=== PATIENT | female | born 1985 | race Caucasian/White ===

== ENCOUNTER 2016-10-04 11:17 | Outpatient (CLI) | payer OTHER ==
[2016-10-04] MEDS ORDERED: RINGERS SOLUTION,LACTATED 1,000 ML IV PRN (11:24)
[2016-10-04] MEDS ORDERED: RINGERS SOLUTION,LACTATED 2,000 ML IV ONE (11:24)
--- NOTE | 2016-10-04 12:00 | L&D Flow Sheet ---
LD Flowsheet Datetime Report Generated by CPN: 10/04/2016 12:00 Datetime: 10/04/2016 11:55 Patient Care IV/Blood Work: IV Started; IV Bolus Started (Hali Camp, RNC) Patient Care Comments: 18 gjelco placed in left forearm open for 2 liter bolus via gravity infusong withou difficulty (Hali Camp, RNC) Datetime: 10/04/2016 11:44 Vital Signs NBP Sys/Carolyn/Mean (mmHg): 120 (QS system process) : 66 (QS system process) : 87 (QS system process) Pulse: 102 (QS system process)
--- NOTE | 2016-10-04 13:18 | Non Stress Test Report ---
Non Stress Test Datetime Report Generated by CPN: 10/04/2016 13:18 DEMOGRAPHIC EGA NST: 37.3 INDICATION Indication for Study: Ordered by Provider MONITORING Monitor Explained: Monitor Explained; Test Explained; Other Time on Monitor: 10/04/2016 11:41 Time off Monitor: 10/04/2016 12:14 NST Duration: 33 NST INTERVENTIONS NST Interventions: PO Hydration; IV Fluids; Reposition Patient Physician Notified NST: K Matamoros CNM BABY A: [id number] BABY A Movement : Present Contraction Frequency : x0 FHR Baseline : 135 Accelerations : 15X15 Decelerations : None Variability : Moderate 6-25bpm NST Review: Meets Criteria for Reactive NST NST Review and Verified By : Coby Dye RNC NST Results: Reactive NST REPORT Report Trigger: Send Report
--- NOTE | 2016-10-04 14:01 | L&D Flow Sheet ---
LD Flowsheet Datetime Report Generated by CPN: 10/04/2016 14:00 Datetime: 10/04/2016 13:15 IV/Blood Work: IV Infusing per Order (Hali Camp, RNC) Patient Care Comments: RN to bedside, resting comfortably with no complaints. (Hali Camp, RNC) Datetime: 10/04/2016 12:45 IV/Blood Work: IV Bolus Given ml @ (Annotations: LR 1000 ml given, second liter hung and infusing via gravity as ordered.) (Hali Camp, RNC) Datetime: 10/04/2016 12:29 Pain Scale: 0 (Trinh Dye, RNC) Pain Presence: None/Denies (Trinh Dye, RNC) Level of Consciousness: Fully Conscious (Trinh Dye, RNC) DTR's/Clonus: DTRs 2+; No Clonus (Trinh Dye, RNC) Headache: Denies (Trinh Dye, RNC) Breath Sounds, Left: Clear and Equal (Trinh Dye, RNC) Breath Sounds, Right: Clear and Equal (Trinh Hardik, RNC) Nausea/Vomiting: Denies (Trinh Dye, RNC) RUQ Epigastric Pain: Denies (Trinh Dye, RNC) Instructional Method: Verbal (Trinh Dye, RNC) Plan of Care: Plan of Care Discussed (Trinh Dye, RNC) Teaching Comments: MARIE, hydration, and repeat MARIE (Trinh Dye, RNC) Datetime: 10/04/2016 12:13 Monitor Mode: External; Palpation (Hali Camp, RNC) Frequency (min): none (Hali Max RNC) Resting Tone (Palpate): Relaxed (Hali Max RNC) Monitor Mode: External US; Auscultation (Hali Max RNC) FHR Baseline Rate : 135 (Hali Max, RNC) FHR Baseline Changes: No Baseline Change (Hali Max, RNC) Variability: Moderate 6-25 bpm (Hali Max, RNC) Accelerations: 15X15 (Hali Max RNC) Decelerations: None (Hali Max RNLizette) IV/Blood Work: IV Infusing per Order (SUNNY Riggins) Patient Care Comments: EFM off per order (Hali Max RNC) Datetime: 10/04/2016 12:10 Provider Reviewed Strip: Yes (SUNNY Riggins) Communication: Provider Orders Received (SUNNY Riggins) Communication Comments: Dr Herrera on unit strip reviewed and noted as reactive. Verbal order received to discontinue monitor. Reviewed plan with pt and mother to complete 2 liters of iv fluid and repeat MARIE 2 hours after completion of infusion. Denies questions or concerns verbalized understanding (SUNNY Riggins)
--- NOTE | 2016-10-04 18:00 | L&D Flow Sheet ---
LD Flowsheet Datetime Report Generated by CPN: 10/04/2016 18:00 Datetime: 10/04/2016 16:33 Instructional Method: Verbal; Written; Patient Instructed; Verbalized Understanding (Hali Camp, [facility]) Labor/Induction: Interventions (Hali Camp, C) Related: Nutrition; Hydration; Activity and Rest (Hali Camp, C) Teaching Comments: Reviewed kick count process, importance of adequate hydration and f/u instructions reveiwed (Hali Camp, C) Datetime: 10/04/2016 16:32 Monitor Mode: Auscultation (Hali Camp, RNC) FHR Baseline Rate : 140 (Hali Camp, RNC) Datetime: 10/04/2016 16:29 NBP Sys/Carolyn/Mean (mmHg): 132 (QS system process) : 63 (QS system process) : 90 (QS system process) Pulse: 93 (QS system process) Datetime: 10/04/2016 16:22 Patient Care Comments: MARIE 8.8cm, call placed to [facility] given verbal report of test result with discharge order received. (Hali Camp, RNC) Datetime: 10/04/2016 16:05 Patient Care Comments: Ambulated with assistance by Keshav Conde ST to U/S for MARIE as scheduled (Hali Max, RNC)
== END 2016-10-04 16:38 | disposition home or self-care (01) ==
LOC: LC 11:17
PROVIDERS: ATTEND Obstetrics & Gynecology
PROC: 4A1HXCZ Monitoring of Products of Conception, Cardiac Rate, External Approach (ICD-10-PCS; principal; 2016-10-04)
DX: O24.419 Gestational diabetes mellitus in pregnancy, unspecified control (principal); Z3A.35 35 weeks gestation of pregnancy
CPT/HCPCS: 59025; 76815

== ENCOUNTER 2016-10-17 10:52 | Outpatient (CLI) | payer OTHER ==
[2016-10-17 11:25] LABS: APPEARANCE,URINE CLOUDY; BILIRUBIN,URINE NEGATIVE (NEGATIVE); GLUCOSE, URINE NEGATIVE (NEGATIVE); KETONES,URINE NEGATIVE (NEGATIVE); LEUKOCYTE ESTERASE,URINE MODERATE (NEGATIVE); NITRITE,URINE NEGATIVE (NEGATIVE); PROTEIN,URINE NEGATIVE (NEGATIVE); URINE SPECIFIC GRAVITY 1.016; UROBILINOGEN,URINE NEGATIVE mg/dL (<2.0)
[2016-10-17 11:30] LABS: AMNISURE (ROM) NEGATIVE (NEGATIVE)
[2016-10-17 11:44] LABS: URINE BARBITURATES SCREEN NEGATIVE; URINE METHADONE SCREEN NEGATIVE; URINE OPIATES LOW NEGATIVE; URINE PHENCYCLIDINE SCREEN NEGATIVE
--- NOTE | 2016-10-17 12:00 | L&D Flow Sheet ---
LD Flowsheet Datetime Report Generated by CPN: 10/17/2016 12:00 Datetime: 10/17/2016 11:34 Vital Signs NBP Sys/Carolyn/Mean (mmHg): 127 (QS system process) : 69 (QS system process) : 91 (QS system process) Pulse: 84 (QS system process) Datetime: 10/17/2016 11:19 Vital Signs NBP Sys/Carolyn/Mean (mmHg): 117 (QS system process) : 66 (QS system process) : 86 (QS system process) Pulse: 86 (QS system process) Datetime: 10/17/2016 11:17 Uterine Activity Monitor Interventions for UA: Higgins Adjusted (Lucy Yi, RN) Resting Tone (Palpate): Relaxed (Lucy Kd, RN) Assessment A Monitor Mode: External US (Lucy Yi, RN) Pain Pain Scale: 2 (Lucy Yi, RN) Pain Presence: Constant (Annotations: back pain) (Lucy Yi, RN) Pain Type: Dull (Lucy Yi, RN) Pain Location: Back (Lucy Yi, RN) Pain Goal: 1 (Lucy Yi, RN) Pain Relief Measures: Comfort Measures (Lucy Yi, RN) Vaginal Exam Vaginal Bleeding: None (Lucy Yi, RN) Maternal Assessment Level of Consciousness: Fully Conscious (Lucy Yi, RN) DTR's/Clonus: DTRs 2+; No Clonus (Lucy Yi, RN) Headache: Denies (Lucy Yi, RN) Breath Sounds, Left: Clear and Equal (Lucy Yi, RN) Breath Sounds, Right: Clear and Equal (Lucy Yi, RN) Nausea/Vomiting: Denies (Lucy Yi, RN) RUQ Epigastric Pain: Denies (Lucy Yi, RN) Patient Care Oxygen Method: Room Air (Lucy Yi, RN) Patient Position/Activity: Right Tilt (Lucy Yi, RN) Provider Reviewed Strip: Yes (Lucy Yi, RN) Teaching Instructional Method: Verbal (TALISHA Jackson Plan of Care: Plan of Care Discussed (Lucy Yi RN) Unit Routine: [place] to Room; Call [place]; Bed; Visiting Policy; Waiting Areas (TALISHA Jackson Labor/Induction: Labor Stages (TALISHA Jackson Related: Common Discomforts of (Lucy Yi RN) Datetime: 10/17/2016 11:10 Vital Signs NBP Sys/Carolyn/Mean (mmHg): 124 (QS system process) : 72 (QS system process) : 90 (QS system process) Pulse: 87 (QS system process)
--- NOTE | 2016-10-17 12:07 | Non Stress Test Report ---
Non Stress Test Datetime Report Generated by CPN: 10/17/2016 12:07 DEMOGRAPHIC EGA NST: 39.2 INDICATION Indication for Study: Other MONITORING Monitor Explained: Monitor Explained; Test Explained; Patient Verbalized Understanding Time on Monitor: 10/17/2016 11:13 Time off Monitor: 10/17/2016 11:35 Time off Monitor: 10/17/2016 11:35 NST Duration: 22 NST INTERVENTIONS NST Interventions: None Physician Notified NST: Dr. Vaz BABY A: [id number] BABY A Movement : Present Contraction Frequency : none FHR Baseline : 140 Accelerations : 15X15 Decelerations : None Variability : Moderate 6-25bpm NST Review: Meets Criteria for Reactive NST NST Review and Verified By : Hali Camp RNC NST Results: Reactive NST REPORT Report Trigger: Send Report
== END 2016-10-17 11:42 | disposition home or self-care (01) ==
LOC: LC 10:52
PROVIDERS: ATTEND Obstetrics & Gynecology
PROC: 4A1HXCZ Monitoring of Products of Conception, Cardiac Rate, External Approach (ICD-10-PCS; principal; 2016-10-17)
DX: O47.1 False labor at or after 37 completed weeks of gestation (principal); Z3A.39 39 weeks gestation of pregnancy
CPT/HCPCS: 59025; 80307; 81005; 84112

== ENCOUNTER 2016-10-19 17:01 | Inpatient (IN) | payer OTHER ==
[2016-10-19 18:03] LABS: ABSOLUTE MONOCYTES (AUTO) 0.5 10^3/uL (0.1-1.4); ABSOLUTE NEUT (AUTO) 7.5 10^3/uL (1.7-8.2); BASOPHILS % (AUTO) 0.3 % (0-2); EOSINOPHILS % (AUTO) 0.5 % (0-6); HEMATOCRIT 30.4 % (36.0-47.0); HEMOGLOBIN 10.3 g/dL (12.0-15.5); HGB HCT DIFFERENCE 0.5; LYMPHOCYTES % (AUTO) 19.6 % (13-45); MEAN CORPUSCULAR HGB CONC 33.8 g/dL (32.0-36.0); MEAN CORPUSCULAR VOLUME 77 fl (80-97); RED BLOOD COUNT 3.94 10^6/uL (3.72-5.28); RED CELL DISTRIBUTION WIDTH 16.1 % (11.5-14.0); SEGMENTED NEUTROPHILS % (AUTO) 74.6 % (42-78); WHITE BLOOD COUNT 10.1 10^3/uL (4.0-10.5)
[2016-10-19 18:10] LABS: APPEARANCE,URINE CLOUDY; BILIRUBIN,URINE NEGATIVE (NEGATIVE); GLUCOSE, URINE NEGATIVE (NEGATIVE); KETONES,URINE NEGATIVE (NEGATIVE); LEUKOCYTE ESTERASE,URINE SMALL (NEGATIVE); NITRITE,URINE NEGATIVE (NEGATIVE); PROTEIN,URINE NEGATIVE (NEGATIVE); URINE SPECIFIC GRAVITY 1.019; UROBILINOGEN,URINE NEGATIVE mg/dL (<2.0)
[2016-10-19 18:24] LABS: URINE BARBITURATES SCREEN NEGATIVE; URINE METHADONE SCREEN NEGATIVE; URINE OPIATES LOW NEGATIVE; URINE PHENCYCLIDINE SCREEN NEGATIVE
--- NOTE | 2016-10-19 20:00 | L&D Flow Sheet ---
LD Flowsheet Datetime Report Generated by CPN: 10/19/2016 20:00 Datetime: 10/19/2016 19:41 Comments: Patient sitting up to eating (Starla Arreola, RN) Datetime: 10/19/2016 19:36 NBP Sys/Carolyn/Mean (mmHg): 128 (QS system process) : 62 (QS system process) : 89 (QS system process) Pulse: 86 (QS system process) Datetime: 10/19/2016 19:30 Monitor Mode: External; Palpation (Aysha Ivett, RN) Frequency (min): none (Aysha Ivett, RN) Resting Tone (Palpate): Relaxed (Aysha Ivett, RN) Monitor Mode: External US (Aysha Ivett, RN) FHR Baseline Rate : 135 (Aysha Ivett, RN) Variability: Moderate 6-25 bpm (Aysha Ivett, RN) Accelerations: 15X15 (Aysha Ivett, RN) Decelerations: None (Aysha Ivett, RN) Communication Comments: Report given to Thanh Arreola RN, care relinquished at this time (Aysha Ivett, RN) Datetime: 10/19/2016 19:04 NBP Sys/Carolyn/Mean (mmHg): 121 (QS system process) : 69 (QS system process) : 89 (QS system process) Pulse: 85 (QS system process) Datetime: 10/19/2016 19:00 Monitor Mode: External; Palpation (Aysha Ivett, RN) Frequency (min): none (Aysha Ivett, RN) Quality: Moderate (Aysha Ivett, RN) Resting Tone (Palpate): Relaxed (Aysha Ivett, RN) Monitor Mode: External US (Aysha Ivett, RN) FHR Baseline Rate : 140 (Aysha Ivett, RN) Variability: Moderate 6-25 bpm (Aysha Ivett, RN) Accelerations: 15X15 (Aysha Ivett, RN) Decelerations: None (Aysha Ivett, RN) Datetime: 10/19/2016 18:51 Dilatation (cm): 2.0 (Marcelle Bellavance, RNC) Effacement (%): 50 (Marcelle Bellavance, RNC) Station: -4 (Marcelle Bellavance, RNC) Exam by: Dr Yi (Marcelle Bellavance, RNC) Datetime: 10/19/2016 18:34 NBP Sys/Carolyn/Mean (mmHg): 119 (QS system process) : 65 (QS system process) : 87 (QS system process) Pulse: 81 (QS system process) Datetime: 10/19/2016 18:30 Monitor Mode: External; Palpation (Aysha Ivett, RN) Frequency (min): none (Aysha Ivett, RN) Resting Tone (Palpate): Relaxed (Aysha Ivett, RN) Monitor Mode: External US (Aysha Ivett, RN) FHR Baseline Rate : 135 (Aysha Ivett, RN) Variability: Moderate 6-25 bpm (Aysha Ivett, RN) Accelerations: None (Aysha Ivett, RN) Decelerations: None (Aysha Ivett, RN) Datetime: 10/19/2016 18:04 NBP Sys/Carolyn/Mean (mmHg): 110 (QS system process) : 64 (QS system process) : 81 (QS system process) Pulse: 79 (QS system process) Datetime: 10/19/2016 18:00 Monitor Mode: External; Palpation (Aysha Ivett, RN) Frequency (min): none (Aysha Ivett, RN) Resting Tone (Palpate): Relaxed (Aysha Ivett, RN) Monitor Mode: External US (Aysha Ivett, RN) FHR Baseline Rate : 135 (Aysha Ivett, RN) Variability: Moderate 6-25 bpm (Aysha Ivett, RN) Accelerations: 15X15 (Aysha Ivett, RN) Decelerations: None (Aysha Ivett, RN) Datetime: 10/19/2016 17:40 Pain Scale: 0 (Aysha Ivett, RN) Pain Presence: None/Denies (Aysha Ivett, RN) Pain Type: N/A (Aysha Ivett, RN) Membrane Status: Intact (Aysha Ivett, RN) Vaginal Bleeding: None (Aysha Ivett, RN) Level of Consciousness: Fully Conscious (Aysha Ivett, RN) Headache: Denies (Aysha Ivett, RN) Breath Sounds, Left: Clear and Equal (Aysha Ivett, RN) Breath Sounds, Right: Clear and Equal (Aysha Ivett, RN) Nausea/Vomiting: Denies (Aysha Ivett, RN) RUQ Epigastric Pain: Denies (Aysha Ivett, RN) Datetime: 10/19/2016 17:34 NBP Sys/Carolyn/Mean (mmHg): 119 (QS system process) : 77 (QS system process) : 90 (QS system process) Pulse: 85 (QS system process)
[2016-10-19] MEDS ORDERED: OXYTOCIN/NORMAL SALINE 1,000 ML IV PRN (20:27)
[2016-10-19] MEDS ORDERED: DINOPROSTONE 10 MG VAGINAL INSERT.SR PV PRN (20:27)
[2016-10-19] MEDS ORDERED: RINGERS SOLUTION,LACTATED 300 ML IV ONE (20:27)
[2016-10-19] MEDS ORDERED: DINOPROSTONE 10 MG VAGINAL INSERT.SR ONE (20:43)
[2016-10-19] MEDS: RINGERS SOLUTION,LACTATED 1,000 ML IV PRN ×2 (21:44→23:49)
--- NOTE | 2016-10-19 22:00 | L&D Flow Sheet ---
LD Flowsheet Datetime Report Generated by CPN: 10/19/2016 22:00 Datetime: 10/19/2016 21:34 NBP Sys/Carolyn/Mean (mmHg): 122 (QS system process) : 69 (QS system process) : 89 (QS system process) Pulse: 89 (QS system process) LaborFlag: Antepartum (QS system process) Datetime: 10/19/2016 21:04 NBP Sys/Carolyn/Mean (mmHg): 125 (QS system process) : 65 (QS system process) : 89 (QS system process) Pulse: 89 (QS system process) LaborFlag: Antepartum (QS system process) Datetime: 10/19/2016 21:01 Stage of : Antepartum (Starla Arreola, RN) Monitor Mode: External; Palpation (Starla Arreola, RN) Frequency (min): none (Starla Arreola, RN) Resting Tone (Palpate): Relaxed (Starla Arreola, RN) Monitor Mode: External US (Starla Arreola, RN) Monitor Interventions for FHR: Ultrasound Adjusted (Starla Arreola, RN) FHR Baseline Rate : 130 (Starla Arreola, RN) FHR Baseline Changes: No Baseline Change (Starla Arreola, RN) Variability: Moderate 6-25 bpm (Starla Arreola, RN) Accelerations: 15X15 (Starla Arreola, RN) Decelerations: None (Starla Arreola, RN) Communication: RN at Bedside; RN Reviewed Strip (Starla Arreola, RN) Datetime: 10/19/2016 20:51 Stage of : Antepartum (Starla Arreola, RN) Cervical Ripening Agents: Cervidil (Starla Arreola, ROSALVA) Communication: RN at Bedside; RN Reviewed Strip (Starla Arreola RN) Datetime: 10/19/2016 20:34 NBP Sys/Carolyn/Mean (mmHg): 116 (QS system process) : 58 (QS system process) : 83 (QS system process) Pulse: 86 (QS system process) LaborFlag: Antepartum (QS system process) Datetime: 10/19/2016 20:30 Stage of : Antepartum (Starla Arreola, RN) Monitor Mode: External; Palpation (Starla Arreola, RN) Frequency (min): none (Starla Arreola, RN) Resting Tone (Palpate): Relaxed (Starla Arreola, RN) Monitor Mode: External US (Starla Arreola RN) Monitor Interventions for FHR: Ultrasound Adjusted (Starla Arreola, RN) FHR Baseline Rate : 130 (Starla Arreola, RN) Variability: Moderate 6-25 bpm (Starla Arreola, RN) Accelerations: 15X15 (Starla Arreola RN) Comments: UTD if decels present during broken strip (Starla Arreola RN) Pain Scale: 0 (Starla Arreola RN) Pain Presence: None/Denies (Starla Arroela RN) Pain Type: N/A (Starla Arreola RN) Communication: RN at Bedside; RN Reviewed Strip (Starla Arreola RN) LaborFlag: Antepartum (QS system process) Datetime: 10/19/2016 20:27 IV/Blood Work: IV Started; IV Bolus Started (Starla Arreola RN) Patient Care Comments: 18 gauge placed in L forearm on first attempt. (Starla Arreola RN) Datetime: 10/19/2016 20:09 Patient Position/Activity: Right Tilt; High Fowlers (Starla Arreola RN) Communication: RN at Bedside (Starla Arreola RN) Communication Comments: RN at bedside adjusting FHR monitors. Audible movement (Starla Arreola RN) Datetime: 10/19/2016 20:05 I/O Interventions: Up to BR (Starla Arreola, RN) Datetime: 10/19/2016 20:04 NBP Sys/Carolyn/Mean (mmHg): 125 (QS system process) : 60 (QS system process) : 87 (QS system process) Pulse: 85 (QS system process) LaborFlag: Antepartum (QS system process) Datetime: 10/19/2016 20:00 Stage of : Antepartum (Starla Arreola, RN) Monitor Mode: External; Palpation (Starla Arreola, RN) Frequency (min): none (Starla Arreola RN) Resting Tone (Palpate): Relaxed (Starla Arreola RN) Monitor Mode: External US (Starla Arreola RN) Monitor Interventions for FHR: Ultrasound Adjusted (Starla Arreola RN) FHR Baseline Rate : 130 (Starla Arreola RN) Comments: patient sitting up in bed eating (Starla Arreola RN) Level of Consciousness: Fully Conscious (Starla Arreola RN) DTR's/Clonus: DTRs 2+; No Clonus (Starla Arreola RN) Headache: Denies (Starla Arreola RN) Breath Sounds, Left: Clear and Equal (Starla Arreola RN) Breath Sounds, Right: Clear and Equal (Starla Arreola RN) Nausea/Vomiting: Denies (Starla Arreola RN) RUQ Epigastric Pain: Denies (Starla Arreola RN) Communication: RN at Bedside; RN Reviewed Strip (Starla Arreola RN)
[2016-10-19] MEDS ORDERED: ZOLPIDEM TARTRATE 5 MG TABLET PO ONE (23:35)
[2016-10-19] MEDS ORDERED: ZOLPIDEM TARTRATE 5 MG TABLET ONE (23:47)
--- NOTE | 2016-10-20 08:00 | L&D Flow Sheet ---
LD Flowsheet Datetime Report Generated by CPN: 10/20/2016 08:00 Datetime: 10/20/2016 07:32 Level of Consciousness: Fully Conscious (Mavelyn Umair, SN) DTR's/Clonus: DTRs 1+; No Clonus (Mavelyn Umair, SN) Headache: Denies (Mavelyn Umair, SN) Breath Sounds, Left: Clear and Equal (Mavelyn Umair, SN) Breath Sounds, Right: Clear and Equal (Mavelyn Umair, SN) Nausea/Vomiting: Denies (Mavelyn Umair, SN) RUQ Epigastric Pain: Denies (Mavelyn Umair, SN) Datetime: 10/20/2016 07:18 Communication Comments: Report to oncoming shift, care relinquished to RN (Nicole Kossmann, RN) Datetime: 10/20/2016 07:00 Monitor Mode: External; Palpation (Nicole Kossmann, RN) Frequency (min): none (Nicole Kossmann, RN) Resting Tone (Palpate): Relaxed (Nicole Kossmann, RN) Monitor Mode: External US (Nicole Kossmann, RN) FHR Baseline Rate : 140 (Nicole Kossmann, RN) Variability: Moderate 6-25 bpm (Nicole Kossmann, RN) Accelerations: 15X15 (Nicole Kossmann, RN) Decelerations: None (Nicole Kossmann, RN) Datetime: 10/20/2016 06:30 Monitor Mode: External; Palpation (Nicole Kossmann, RN) Frequency (min): x1 (Nicole Devine, RN) Quality: Mild (Nicole Devine, RN) Duration (sec): 50 (Nicole Devine, RN) Resting Tone (Palpate): Relaxed (Nicole Devine RN) Monitor Mode: External US (Nicole Devine RN) FHR Baseline Rate : 140 (Nicole Devine, RN) Variability: Moderate 6-25 bpm (Nicole Devine, RN) Accelerations: 15X15 (Nicole Devine, RN) Decelerations: None (Nicole Devine, RN) Datetime: 10/20/2016 06:26 NBP Sys/Carolyn/Mean (mmHg): 126 (QS system process) : 72 (QS system process) : 92 (QS system process) Pulse: 84 (QS system process) Respirations: 16 (Nicole Devine RN) Temperature (F): 98.1 (Nicole Devine RN) Temperature (C): 36.7 (QS system process) Temperature Route: Oral (Nicole Devine RN) Pain Scale: 0 (Nicole Devine RN) Pain Presence: None/Denies (Nicole Devine RN) Pain Type: N/A (Nicole Devine RN) LaborFlag: Antepartum (QS system process) Datetime: 10/20/2016 06:25 Bedside Blood Glucose: 88 (QS system process) LaborFlag: Antepartum (QS system process) Datetime: 10/20/2016 06:01 Monitor Mode: External; Palpation (Nicole Devine, RN) Frequency (min): none (Nicole Devine, RN) Resting Tone (Palpate): Relaxed (Nicole Devine, RN) Monitor Mode: External US (Nicole Devine, RN) FHR Baseline Rate : 130 (Nicole Devine, RN) Variability: Moderate 6-25 bpm (Nicole Kareemann, RN) Accelerations: 15X15 (Nicolemariama Sernaann, RN) Decelerations: None (Nicole Kareemann, RN) Datetime: 10/20/2016 05:30 Monitor Mode: External; Palpation (Nicole Kossmann, RN) Frequency (min): x1 (Nicole Kossmann, RN) Quality: Mild (Nicole Kossmann, RN) Duration (sec): 30 (Nicole Kossmann, RN) Resting Tone (Palpate): Relaxed (Nicole Kossmann, RN) Monitor Mode: External US (Nicole Kossmann, RN) FHR Baseline Rate : 130 (Nicole Kossmann, RN) Variability: Moderate 6-25 bpm (Nicole Kossmann, RN) Accelerations: 15X15 (Nicole Kossmann, RN) Decelerations: None (Nicole Kossmann, RN) Datetime: 10/20/2016 05:01 Monitor Mode: External; Palpation (Nicole Kossmann, RN) Frequency (min): none (Nicole Kossmann, RN) Resting Tone (Palpate): Relaxed (Nicole Kossmann, RN) Monitor Mode: External US (Nicole Kossmann, RN) FHR Baseline Rate : 130 (Nicole Kossmann, RN) Variability: Moderate 6-25 bpm (Nicole Kossmann, RN) Accelerations: 15X15 (Nicole Kossmann, RN) Decelerations: None (Nicole Kossmann, RN) Datetime: 10/20/2016 04:30 Monitor Mode: External; Palpation (Nicole Kossmann, RN) Frequency (min): x2 (Nicole Kossmann, RN) Quality: Mild (Nicole Kossmann, RN) Duration (sec): 30-50 (Nicole Kossmann, RN) Resting Tone (Palpate): Relaxed (Nicole Kossmann, RN) Monitor Mode: External US (Nicole Kossmann, RN) FHR Baseline Rate : 130 (Nicole Kossmann, RN) Variability: Moderate 6-25 bpm (Nicole Kossmann, RN) Accelerations: 15X15 (Nicole Kossmann, RN) Decelerations: None (Nicole Kossmann, RN) Datetime: 10/20/2016 04:01 Monitor Mode: External; Palpation (Nicole Kossmann, RN) Frequency (min): none (Nicole Kossmann, RN) Resting Tone (Palpate): Relaxed (Nicole Kossmann, RN) Contraction Comments: denies contractions (Nicole Kossmann, RN) Monitor Mode: External US (Nicole Kossmann, RN) FHR Baseline Rate : 130 (Nicole Kossmann, RN) Variability: Moderate 6-25 bpm (Nicole Kossmann, RN) Accelerations: 15X15 (Nicole Kossmann, RN) Decelerations: None (Nicole Kossmann, RN) Datetime: 10/20/2016 03:44 Monitor Interventions for UA: [place] Adjusted (Nicole Kossmann, RN) Datetime: 10/20/2016 03:33 I/O Interventions: Up to BR (Nicole Kossmann, RN) Datetime: 10/20/2016 03:30 Monitor Mode: External; Palpation (Nicole Kossmann, RN) Frequency (min): none (Nicole Kossmann, RN) Resting Tone (Palpate): Relaxed (Nicole Kossmann, RN) Monitor Mode: External US (Nicole Kossmann, RN) FHR Baseline Rate : 130 (Nicole Kossmann, RN) Variability: Moderate 6-25 bpm (Nicole Kossmann, RN) Accelerations: 15X15 (Nicole Kossmann, RN) Decelerations: None (Nicole Kossmann, RN) Datetime: 10/20/2016 03:01 Monitor Mode: External; Palpation (Nicole Kossmann, RN) Frequency (min): none (Nicole Kossmann, RN) Resting Tone (Palpate): Relaxed (Nicole Kossmann, RN) Monitor Mode: External US (Nicole Kossmann, RN) FHR Baseline Rate : 130 (Nicole Kossmann, RN) Variability: Moderate 6-25 bpm (Nicole Kossmann, RN) Accelerations: 15X15 (Nicole Kossmann, RN) Decelerations: None (Nicole Kossmann, RN) Datetime: 10/20/2016 02:40 Breath Sounds, Left: Clear and Equal (Nicole Devine RN) Breath Sounds, Right: Clear and Equal (Nicole Devine RN) Datetime: 10/20/2016 02:37 NBP Sys/Carolyn/Mean (mmHg): 116 (QS system process) : 62 (QS system process) : 82 (QS system process) Pulse: 93 (QS system process) Respirations: 16 (Nicole Devine RN) Monitor Interventions for UA: [place] Adjusted (Nicole Devine RN) Pain Scale: 0 (Nicole Devine RN) Pain Presence: None/Denies (Nicole Devine RN) Pain Type: N/A (Nicole Devine RN) Communication Comments: Care assummed of patient after report received from ROSALVA Arreola. (Nicole Devine RN) LaborFlag: Antepartum (QS system process) Datetime: 10/20/2016 02:35 Temperature (F): 98.0 (Starla Arreola, RN) Temperature (C): 36.7 (QS system process) Communication: RN at Bedside (Starla Arreola RN) Communication Comments: report given care relinquished at this time. (Starla Arreola, RN) LaborFlag: Antepartum (QS system process) Datetime: 10/20/2016 02:30 Stage of : Antepartum (Starla Arreola, RN) Monitor Mode: External (Starla Arreola, RN) Frequency (min): none (Starla Arreola, RN) Resting Tone (Palpate): Relaxed (Starla Arreola, RN) Monitor Mode: External US (Starla Arreola, RN) FHR Baseline Rate : 135 (Starla Arreola, RN) Variability: Moderate 6-25 bpm (Starla Arreola, RN) Accelerations: 15X15 (Starla Arreola, RN) Decelerations: None (Starla Arreola, RN) Communication: RN Reviewed Strip (Starla Arreola, RN) Datetime: 10/20/2016 02:00 Stage of : Antepartum (Starla Arreola, RN) Monitor Mode: External (Starla Arreola, RN) Frequency (min): none (Starla Arreola, RN) Resting Tone (Palpate): Relaxed (Starla Arreola, RN) Monitor Mode: External US (Starla Arreola, RN) FHR Baseline Rate : 130 (Starla Arreola, RN) Variability: Moderate 6-25 bpm (Starla Arreola, RN) Accelerations: 15X15 (Starla Arreola, RN) Decelerations: None (Starla Arreola, RN) Communication: RN Reviewed Strip (Starla Arreola, RN) Datetime: 10/20/2016 01:30 Stage of : Antepartum (Starla Arreola, RN) Respirations: 16 (Starla Arreola, RN) Monitor Mode: External (Starla Arreola, RN) Frequency (min): none (Starla Arreola, RN) Resting Tone (Palpate): Relaxed (Starla Arreola, RN) Monitor Mode: External US (Starla Arreola, RN) FHR Baseline Rate : 135 (Starla Arreola, RN) Variability: Moderate 6-25 bpm (Starla Arreola, RN) Accelerations: 15X15 (Starla Arreola, RN) Decelerations: None (Starla Arreola, RN) Pain Coping: Sleeping (Starla Arreola, RN) Communication: RN at Bedside; RN Reviewed Strip (Starla Arreola, RN) LaborFlag: Antepartum (QS system process) Datetime: 10/20/2016 01:00 Stage of : Antepartum (Starla Arreola, RN) Monitor Mode: External (Starla Arreola, RN) Frequency (min): none (Starla Arreola, RN) Resting Tone (Palpate): Relaxed (Starla Arreola, RN) Monitor Mode: External US (Starla Arreola, RN) FHR Baseline Rate : 130 (Starla Arreola, RN) Variability: Moderate 6-25 bpm (Starla Arreola, RN) Accelerations: 15X15 (Starla Arreola, RN) Decelerations: None (Starla Arreola, RN) Communication: RN Reviewed Strip (Starla Arreola, RN) Datetime: 10/20/2016 00:30 Stage of : Antepartum (Starla Arreola, RN) Monitor Mode: External (Starla Arreola, RN) Frequency (min): none (Starla Arreola, RN) Resting Tone (Palpate): Relaxed (Starla Arreola, RN) Monitor Mode: External US (Starla Arreola, RN) FHR Baseline Rate : 135 (Starla Arreola, RN) Variability: Moderate 6-25 bpm (Starla Arreola, RN) Accelerations: 15X15 (Starla Arreola, RN) Decelerations: None (Starla Arreola, RN) Communication: RN Reviewed Strip (Starla Arreola RN) Datetime: 10/20/2016 00:00 Stage of : Antepartum (Starla Arreola, RN) Respirations: 16 (Starla Arreola, RN) Temperature (F): 98.1 (Starla Arreola, RN) Temperature (C): 36.7 (QS system process) Monitor Mode: External; Palpation (Starla Arreola RN) Frequency (min): none (Starla Arreola RN) Resting Tone (Palpate): Relaxed (Starla Arreola RN) Monitor Mode: External US (Starla Arreola RN) FHR Baseline Rate : 135 (Starla Arreola, RN) Variability: Moderate 6-25 bpm (Starla Arreola, RN) Accelerations: 15X15 (Starla Arreola, RN) Decelerations: None (Starla Arreola, RN) Pain Presence: None/Denies (Starla Arreola RN) Pain Type: N/A (Starla Arreola, RN) Pain Coping: Talking Through Contractions; Sleeping (Starla Arreola RN) Patient Position/Activity: Right Tilt; Low Fowlers (Starla Arreola RN) Communication: RN at Bedside; RN Reviewed Strip (Starla Arreola RN) LaborFlag: Antepartum (QS system process) Datetime: 10/19/2016 23:49 IV/Blood Work: New IV Bag Hung (Starla Arreola, RN) Datetime: 10/19/2016 23:48 Analgesics/Sedatives: Ambien (mg) @ 10 (Starla Arreola, RN) Datetime: 10/19/2016 23:34 NBP Sys/Carolyn/Mean (mmHg): 115 (QS system process) : 66 (QS system process) : 82 (QS system process) Pulse: 78 (QS system process) LaborFlag: Antepartum (QS system process) Datetime: 10/19/2016 23:30 Stage of : Antepartum (Starla Arreola, RN) Monitor Mode: External (Starla Arreola, RN) Frequency (min): none (Starla Arreola, RN) Resting Tone (Palpate): Relaxed (Starla Arreola, RN) Monitor Mode: External US (Starla Arreola, RN) FHR Baseline Rate : 135 (Starla Arreola, RN) Variability: Moderate 6-25 bpm (Starla Arreola, RN) Accelerations: 15X15 (Starla Arreola, RN) Decelerations: None (Starla Arreola, RN) Communication: RN Reviewed Strip (Starla Arreola, RN) Datetime: 10/19/2016 23:04 NBP Sys/Carolyn/Mean (mmHg): 119 (QS system process) : 58 (QS system process) : 81 (QS system process) Pulse: 87 (QS system process) LaborFlag: Antepartum (QS system process) Datetime: 10/19/2016 23:00 Stage of : Antepartum (Starla Arreola, RN) Monitor Mode: External (Starla Arreola, RN) Frequency (min): none (Starla Arreola, RN) Resting Tone (Palpate): Relaxed (Starla Arreola, RN) Monitor Mode: External US (Starla Arreola, RN) FHR Baseline Rate : 135 (Starla Arreola, RN) Variability: Moderate 6-25 bpm (Starla Arreola, RN) Accelerations: 15X15 (Starla Arreola, RN) Decelerations: None (Starla Arreola, RN) Communication: RN Reviewed Strip (Starla Arreola, RN) Datetime: 10/19/2016 22:34 NBP Sys/Carolyn/Mean (mmHg): 120 (QS system process) : 58 (QS system process) : 81 (QS system process) Pulse: 82 (QS system process) LaborFlag: Antepartum (QS system process) Datetime: 10/19/2016 22:30 Stage of : Antepartum (Starla Arreola, RN) Monitor Mode: External (Starla Arreola, RN) Frequency (min): none (Starla Arreola, RN) Resting Tone (Palpate): Relaxed (Starla Arreola, RN) Monitor Mode: External US (Starla Arreola, RN) FHR Baseline Rate : 130 (Starla Arreola, RN) Variability: Moderate 6-25 bpm (Starla Arreola, RN) Accelerations: 15X15 (Starla Arreola, RN) Decelerations: None (Starla Arreola, RN) Pain Coping: Sleeping (Starla Arreola, RN) Communication: RN at Bedside; RN Reviewed Strip (Starla Arreola, RN) Datetime: 10/19/2016 22:04 NBP Sys/Carolyn/Mean (mmHg): 122 (QS system process) : 56 (QS system process) : 81 (QS system process) Pulse: 83 (QS system process) LaborFlag: Antepartum (QS system process) Datetime: 10/19/2016 22:00 Stage of : Antepartum (Starla Arreola RN) Monitor Mode: External; Palpation (Starla Arreola RN) Frequency (min): irregular (Starla Arreola RN) Quality: Mild (Starla Arreola RN) Duration (sec): 50-80 (Starla Arreola RN) Pattern: Normal: <= 5 Contractions in 10 Minutes (Starla Arreola RN) Resting Tone (Palpate): Relaxed (Starla Arreola RN) Monitor Mode: External US (Starla Arreola RN) FHR Baseline Rate : 135 (Starla Arreola RN) Variability: Moderate 6-25 bpm (Starla Arreola RN) Accelerations: 15X15 (Starla Arreola RN) Decelerations: None (Starla Arreola RN) Communication: RN Reviewed Strip (Starla Arreola RN)
[2016-10-20] MEDS ORDERED: MISOPROSTOL 0.1 MG TABLET ONE ×2 (08:51→09:05)
[2016-10-20] MEDS ORDERED: MISOPROSTOL 0.1 MG TABLET PO ONE (09:00)
[2016-10-20] MEDS ORDERED: MISOPROSTOL 0.1 MG TABLET PV SCH (09:00)
--- NOTE | 2016-10-20 10:00 | L&D Flow Sheet ---
LD Flowsheet Datetime Report Generated by CPN: 10/20/2016 10:00 Datetime: 10/20/2016 09:41 NBP Sys/Carolyn/Mean (mmHg): 119 (QS system process) : 60 (QS system process) : 83 (QS system process) Pulse: 90 (QS system process) LaborFlag: Antepartum (QS system process) Datetime: 10/20/2016 09:30 Monitor Mode: External; Palpation (Lexy Alvarado RN) Frequency (min): Occasional (Lexy Alvarado, RN) Quality: Mild (Lexy Alvarado, RN) Duration (sec): 30-60 (Lexy Alvarado, RN) Resting Tone (Palpate): Relaxed (Lexy Alvarado, RN) Monitor Mode: External US (Lexy Alvarado, RN) FHR Baseline Rate : 135 (Lexy Alvarado, RN) Variability: Moderate 6-25 bpm (Lexy Alvarado, RN) Accelerations: 15X15 (Lexy Alvarado, RN) Decelerations: None (Lexy Alvarado, RN) Datetime: 10/20/2016 09:00 Monitor Mode: External; Palpation (Lexy Alvarado, RN) Frequency (min): 2-5 (Lexy Alvarado, RN) Quality: Mild (Lexy Alvarado, RN) Duration (sec): 60-90 (Lexy Alvarado, RN) Resting Tone (Palpate): Relaxed (Lexy Alvarado, RN) Monitor Mode: External US (Lexy Alvarado, RN) FHR Baseline Rate : 135 (Lexy Alvarado, RN) Variability: Moderate 6-25 bpm (Lexy Alvarado, RN) Accelerations: 15X15 (Lexy Alvarado, RN) Decelerations: None (Lexy Alvarado, RN) Datetime: 10/20/2016 08:41 NBP Sys/Carolyn/Mean (mmHg): 117 (QS system process) : 72 (QS system process) : 88 (QS system process) Pulse: 85 (QS system process) Respirations: 16 (Lexy Alvarado RN) LaborFlag: Antepartum (QS system process) Datetime: 10/20/2016 08:30 Contraction Comments: UTD; Pt. up to ambulate. (Lexy Alvarado RN) Comments: UTD; Pt. up to ambulate. (Lexy Alvarado RN) Datetime: 10/20/2016 08:00 Contraction Comments: UTD; Pt. up to ambulate. (Lexy Alvarado RN) Monitor Mode: External US (Lexy Alvarado RN) FHR Baseline Rate : 135 (Lexy Alvarado RN)
--- NOTE | 2016-10-20 12:00 | L&D Flow Sheet ---
LD Flowsheet Datetime Report Generated by CPN: 10/20/2016 12:00 Datetime: 10/20/2016 11:11 NBP Sys/Carolyn/Mean (mmHg): 110 (QS system process) : 71 (QS system process) : 85 (QS system process) Pulse: 75 (QS system process) LaborFlag: Antepartum (QS system process) Datetime: 10/20/2016 10:41 NBP Sys/Carolyn/Mean (mmHg): 124 (QS system process) : 59 (QS system process) : 85 (QS system process) Pulse: 77 (QS system process) LaborFlag: Antepartum (QS system process) Datetime: 10/20/2016 10:30 Monitor Mode: External; Palpation (Lexy Alvarado, RN) Frequency (min): Occasional (Lexy Alvarado, RN) Quality: Mild (Lexy Alvarado, RN) Duration (sec): 30-50 (Lexy Alvarado, RN) Resting Tone (Palpate): Relaxed (Lexy Alvarado, RN) Monitor Mode: External US (Lexy Alvarado, RN) FHR Baseline Rate : 130 (Lexy Alvarado, RN) Variability: Moderate 6-25 bpm (Lexy Alvarado, RN) Accelerations: 15X15 (Lexy Alvarado, RN) Decelerations: None (Lexy Alvarado, RN) Datetime: 10/20/2016 10:11 NBP Sys/Carolyn/Mean (mmHg): 128 (QS system process) : 66 (QS system process) : 92 (QS system process) Pulse: 83 (QS system process) LaborFlag: Antepartum (QS system process) Datetime: 10/20/2016 10:00 Monitor Mode: External; Palpation (Lexy Alvarado RN) Frequency (min): occasional (Lexy Alvarado RN) Quality: Mild (Lexy Alvarado RN) Duration (sec): 50-70 (Lexy Alvarado RN) Resting Tone (Palpate): Relaxed (Lexy Alvarado RN) Monitor Mode: External US (Lexy Alvarado RN) FHR Baseline Rate : 135 (Lexy Alvarado RN) Variability: Moderate 6-25 bpm (Lexy Alvarado RN) Accelerations: 15X15 (Lexy Alvarado RN) Decelerations: None (Lexy Alvarado RN)
[2016-10-20] MEDS ORDERED: OXYTOCIN/NORMAL SALINE 0 UNIT/0 ML RTUINJ ONE (13:31)
[2016-10-20] MEDS: RINGERS SOLUTION,LACTATED 1,000 ML IV PRN (13:48)
[2016-10-20] MEDS ORDERED: FENTANYL/BUPIVACAINE/NS/PF 100 ML EPI PRN (13:53)
[2016-10-20] MEDS ORDERED: BUPIVACAINE HCL 0.25 % INJ/PF (2.5 MG/1 ML) 30 ML VIAL INFIL ONE (13:53)
[2016-10-20] MEDS ORDERED: EPHEDRINE SULFATE INJ 50 MG/1 ML AMPULE IV PRN (13:53)
[2016-10-20] MEDS ORDERED: FENTANYL CITRATE INJ/PF 100 MCG/2 ML AMPUL ONE (13:59)
[2016-10-20] MEDS ORDERED: FENTANYL/BUPIVACAINE/NS/PF 200 MCG/100 ML RTUINJ EPI ONE (14:00)
[2016-10-20] MEDS ORDERED: PHENYLEPHRINE HCL INJ/PF 10 MG/1 ML SDV ONE (14:00)
[2016-10-20] MEDS ORDERED: BUPIVACAINE HCL 0.25 % INJ/PF (2.5 MG/1 ML) 30 ML VIAL ONE (14:00)
[2016-10-20] MEDS ORDERED: EPHEDRINE SULFATE INJ 50 MG/1 ML AMPULE ONE (14:00)
--- NOTE | 2016-10-20 14:00 | L&D Flow Sheet ---
LD Flowsheet Datetime Report Generated by CPN: 10/20/2016 14:00 Datetime: 10/20/2016 13:48 IV/Blood Work: New IV Bag Hung (Lexy Alvarado, RN) Datetime: 10/20/2016 13:42 NBP Sys/Carolyn/Mean (mmHg): 121 (QS system process) : 64 (QS system process) : 84 (QS system process) Pulse: 78 (QS system process) LaborFlag: Antepartum (QS system process) Datetime: 10/20/2016 13:37 Dilatation (cm): 3.0 (Lexy Alvarado, RN) Effacement (%): 50 (Lexy Alvarado, RN) Station: -2 (Lexy Angeleson, RN) Exam by: Natacha Alvarado RN (Lexy Alvarado, RN) Datetime: 10/20/2016 13:33 I/O Interventions: Up to BR (Lexy Alvarado, RN) Datetime: 10/20/2016 13:12 NBP Sys/Carolyn/Mean (mmHg): 120 (QS system process) : 72 (QS system process) : 89 (QS system process) Pulse: 86 (QS system process) LaborFlag: Antepartum (QS system process) Datetime: 10/20/2016 12:41 NBP Sys/Carolyn/Mean (mmHg): 117 (QS system process) : 65 (QS system process) : 85 (QS system process) Pulse: 86 (QS system process) LaborFlag: Antepartum (QS system process) Datetime: 10/20/2016 12:11 NBP Sys/Carolyn/Mean (mmHg): 120 (QS system process) : 73 (QS system process) : 90 (QS system process) Pulse: 92 (QS system process) LaborFlag: Antepartum (QS system process)
[2016-10-20] MEDS: FENTANYL CITRATE INJ/PF 100 MCG/2 ML AMPUL IV PRN ×2 (15:14→16:16)
--- NOTE | 2016-10-20 16:00 | L&D Flow Sheet ---
LD Flowsheet Datetime Report Generated by CPN: 10/20/2016 16:00 Datetime: 10/20/2016 15:58 NBP Sys/Carolyn/Mean (mmHg): 107 (QS system process) : 61 (QS system process) : 78 (QS system process) Pulse: 75 (QS system process) LaborFlag: Antepartum (QS system process) Datetime: 10/20/2016 15:53 NBP Sys/Carolyn/Mean (mmHg): 107 (QS system process) : 57 (QS system process) : 77 (QS system process) Pulse: 81 (QS system process) LaborFlag: Antepartum (QS system process) Datetime: 10/20/2016 15:48 NBP Sys/Carolyn/Mean (mmHg): 107 (QS system process) : 58 (QS system process) : 79 (QS system process) Pulse: 77 (QS system process) LaborFlag: Antepartum (QS system process) Datetime: 10/20/2016 15:37 NBP Sys/Carolyn/Mean (mmHg): 119 (QS system process) : 66 (QS system process) : 87 (QS system process) Pulse: 86 (QS system process) LaborFlag: Antepartum (QS system process) Datetime: 10/20/2016 15:35 NBP Sys/Carolyn/Mean (mmHg): 114 (QS system process) : 60 (QS system process) : 77 (QS system process) Pulse: 97 (QS system process) LaborFlag: Antepartum (QS system process) Datetime: 10/20/2016 15:33 NBP Sys/Carolyn/Mean (mmHg): 114 (QS system process) : 58 (QS system process) : 83 (QS system process) Pulse: 83 (QS system process) LaborFlag: Antepartum (QS system process) Datetime: 10/20/2016 15:31 NBP Sys/Carolyn/Mean (mmHg): 119 (QS system process) : 61 (QS system process) : 85 (QS system process) Pulse: 88 (QS system process) LaborFlag: Antepartum (QS system process) Datetime: 10/20/2016 15:29 NBP Sys/Carolyn/Mean (mmHg): 114 (QS system process) : 58 (QS system process) : 83 (QS system process) Pulse: 86 (QS system process) I/O Interventions: Gooden Cath Inserted (Lexy Alvarado RN) LaborFlag: Antepartum (QS system process) Datetime: 10/20/2016 15:27 NBP Sys/Carolyn/Mean (mmHg): 116 (QS system process) : 55 (QS system process) : 81 (QS system process) Pulse: 90 (QS system process) LaborFlag: Antepartum (QS system process) Datetime: 10/20/2016 15:25 NBP Sys/Carolyn/Mean (mmHg): 129 (QS system process) : 60 (QS system process) : 87 (QS system process) Pulse: 85 (QS system process) LaborFlag: Antepartum (QS system process) Datetime: 10/20/2016 15:23 NBP Sys/Carolyn/Mean (mmHg): 129 (QS system process) : 69 (QS system process) : 92 (QS system process) Pulse: 100 (QS system process) LaborFlag: Antepartum (QS system process) Datetime: 10/20/2016 15:21 NBP Sys/Carolyn/Mean (mmHg): 132 (QS system process) : 72 (QS system process) : 97 (QS system process) Pulse: 85 (QS system process) LaborFlag: Antepartum (QS system process) Datetime: 10/20/2016 15:19 NBP Sys/Carolyn/Mean (mmHg): 146 (QS system process) : 73 (QS system process) : 99 (QS system process) Pulse: 77 (QS system process) Pulse: 81 (QS system process) SpO2 (%): 98 (QS system process) LaborFlag: Antepartum (QS system process) Datetime: 10/20/2016 15:11 NBP Sys/Carolyn/Mean (mmHg): 132 (QS system process) : 78 (QS system process) : 98 (QS system process) Pulse: 88 (QS system process) LaborFlag: Antepartum (QS system process) Datetime: 10/20/2016 14:53 I/O Interventions: Up to BR (Lexy Alvarado, RN) Datetime: 10/20/2016 14:51 Pain Scale: 5 (Lexy Alvarado RN) Pain Presence: Intermittent (Lexy Alvarado RN) Pain Type: Contraction (Lexy Alvarado RN) Pain Location: Abdomen; Back (Lexy Alvarado RN) Pain Goal: 0 (TALISHA Villanueva Pain Assessment Comments: Anesthesia notified of pt. request for epidural. (Lexy Alvarado RN) LaborFlag: Antepartum (QS system process) Datetime: 10/20/2016 14:41 NBP Sys/Carolyn/Mean (mmHg): 151 (QS system process) : 79 (QS system process) : 107 (QS system process) Pulse: 90 (QS system process) LaborFlag: Antepartum (QS system process) Datetime: 10/20/2016 14:15 Monitor Mode: External; Palpation (Lexy Angeleson, RN) Frequency (min): 1.5-3.5 (Lexy Alvarado, RN) Quality: Mild (Lexy Alvarado, RN) Duration (sec): 40-60 (Lexy Alvarado, RN) Resting Tone (Palpate): Relaxed (Lexy Alvarado, RN) Monitor Mode: External US (Lexy Alvarado, RN) FHR Baseline Rate : 140 (Lexy Alvarado, RN) Variability: Moderate 6-25 bpm (Lexy Alvarado, RN) Accelerations: 15X15 (Lexy Alvarado, RN) Decelerations: None (Lexy Alvarado, RN) Pitocin (milliunit): Pitocin Remains (milliunits) @ 4 (Lexy Alvarado, RN) Datetime: 10/20/2016 14:12 NBP Sys/Carolyn/Mean (mmHg): 123 (QS system process) : 89 (QS system process) : 101 (QS system process) Pulse: 85 (QS system process) LaborFlag: Antepartum (QS system process) Datetime: 10/20/2016 14:00 Monitor Mode: External; Palpation (Lexy Alvarado RN) Frequency (min): 2-4 (Lexy Alvarado RN) Quality: Mild (Lexy Alvarado RN) Duration (sec): 60-80 (Lexy Alvarado RN) Resting Tone (Palpate): Relaxed (Lexy Alvarado RN) Monitor Mode: External US (Lexy Alvarado RN) FHR Baseline Rate : 140 (Lexy Alvarado RN) Variability: Moderate 6-25 bpm (Lexy Alvarado RN) Accelerations: 15X15 (Lexy Alvarado RN) Decelerations: None (Lexy Alvarado RN) Pitocin (milliunit): Pitocin Increased to (milliunits) @ (Annotations: 4 ) (Lexy Alvarado RN)
--- NOTE | 2016-10-20 18:00 | L&D Flow Sheet ---
LD Flowsheet Datetime Report Generated by CPN: 10/20/2016 18:00 Datetime: 10/20/2016 17:58 NBP Sys/Carolyn/Mean (mmHg): 115 (QS system process) : 57 (QS system process) : 80 (QS system process) Pulse: 73 (QS system process) LaborFlag: Antepartum (QS system process) Datetime: 10/20/2016 17:53 NBP Sys/Carolyn/Mean (mmHg): 118 (QS system process) : 62 (QS system process) : 85 (QS system process) Pulse: 75 (QS system process) LaborFlag: Antepartum (QS system process) Datetime: 10/20/2016 17:48 NBP Sys/Carolyn/Mean (mmHg): 121 (QS system process) : 66 (QS system process) : 88 (QS system process) Pulse: 77 (QS system process) LaborFlag: Antepartum (QS system process) Datetime: 10/20/2016 17:43 NBP Sys/Carolyn/Mean (mmHg): 121 (QS system process) : 67 (QS system process) : 87 (QS system process) Pulse: 81 (QS system process) LaborFlag: Antepartum (QS system process) Datetime: 10/20/2016 17:38 NBP Sys/Carolyn/Mean (mmHg): 132 (QS system process) : 73 (QS system process) : 95 (QS system process) Pulse: 86 (QS system process) LaborFlag: Antepartum (QS system process) Datetime: 10/20/2016 17:33 NBP Sys/Carolyn/Mean (mmHg): 124 (QS system process) : 67 (QS system process) : 90 (QS system process) Pulse: 82 (QS system process) LaborFlag: Antepartum (QS system process) Datetime: 10/20/2016 17:28 NBP Sys/Carolyn/Mean (mmHg): 119 (QS system process) : 66 (QS system process) : 87 (QS system process) Pulse: 77 (QS system process) LaborFlag: Antepartum (QS system process) Datetime: 10/20/2016 17:23 NBP Sys/Carolyn/Mean (mmHg): 121 (QS system process) : 66 (QS system process) : 87 (QS system process) Pulse: 78 (QS system process) LaborFlag: Antepartum (QS system process) Datetime: 10/20/2016 17:18 NBP Sys/Carolyn/Mean (mmHg): 122 (QS system process) : 66 (QS system process) : 89 (QS system process) Pulse: 75 (QS system process) LaborFlag: Antepartum (QS system process) Datetime: 10/20/2016 17:13 NBP Sys/Carolyn/Mean (mmHg): 117 (QS system process) : 65 (QS system process) : 84 (QS system process) Pulse: 75 (QS system process) LaborFlag: Antepartum (QS system process) Datetime: 10/20/2016 17:08 NBP Sys/Carolyn/Mean (mmHg): 124 (QS system process) : 69 (QS system process) : 89 (QS system process) Pulse: 78 (QS system process) LaborFlag: Antepartum (QS system process) Datetime: 10/20/2016 17:03 NBP Sys/Carolyn/Mean (mmHg): 123 (QS system process) : 68 (QS system process) : 90 (QS system process) Pulse: 77 (QS system process) LaborFlag: Antepartum (QS system process) Datetime: 10/20/2016 16:58 NBP Sys/Carolyn/Mean (mmHg): 120 (QS system process) : 67 (QS system process) : 86 (QS system process) Pulse: 69 (QS system process) LaborFlag: Antepartum (QS system process) Datetime: 10/20/2016 16:53 NBP Sys/Carolyn/Mean (mmHg): 118 (QS system process) : 68 (QS system process) : 88 (QS system process) Pulse: 74 (QS system process) LaborFlag: Antepartum (QS system process) Datetime: 10/20/2016 16:48 NBP Sys/Carolyn/Mean (mmHg): 121 (QS system process) : 72 (QS system process) : 90 (QS system process) Pulse: 72 (QS system process) LaborFlag: Antepartum (QS system process) Datetime: 10/20/2016 16:44 NBP Sys/Carolyn/Mean (mmHg): 120 (QS system process) : 72 (QS system process) : 90 (QS system process) Pulse: 75 (QS system process) LaborFlag: Antepartum (QS system process) Datetime: 10/20/2016 16:38 NBP Sys/Carolyn/Mean (mmHg): 129 (QS system process) : 84 (QS system process) : 100 (QS system process) Pulse: 82 (QS system process) LaborFlag: Antepartum (QS system process) Datetime: 10/20/2016 16:33 NBP Sys/Carolyn/Mean (mmHg): 113 (QS system process) : 64 (QS system process) : 80 (QS system process) Pulse: 76 (QS system process) LaborFlag: Antepartum (QS system process) Datetime: 10/20/2016 16:28 NBP Sys/Carolyn/Mean (mmHg): 103 (QS system process) : 57 (QS system process) : 73 (QS system process) Pulse: 75 (QS system process) LaborFlag: Antepartum (QS system process) Datetime: 10/20/2016 16:23 NBP Sys/Carolyn/Mean (mmHg): 100 (QS system process) : 56 (QS system process) : 74 (QS system process) Pulse: 74 (QS system process) LaborFlag: Antepartum (QS system process) Datetime: 10/20/2016 16:18 NBP Sys/Carolyn/Mean (mmHg): 99 (QS system process) : 55 (QS system process) : 72 (QS system process) Pulse: 75 (QS system process) LaborFlag: Antepartum (QS system process) Datetime: 10/20/2016 16:13 NBP Sys/Carolyn/Mean (mmHg): 92 (QS system process) : 55 (QS system process) : 70 (QS system process) Pulse: 73 (QS system process) LaborFlag: Antepartum (QS system process) Datetime: 10/20/2016 16:09 NBP Sys/Carolyn/Mean (mmHg): 107 (QS system process) : 56 (QS system process) : 77 (QS system process) Pulse: 76 (QS system process) LaborFlag: Antepartum (QS system process) Datetime: 10/20/2016 16:03 NBP Sys/Carolyn/Mean (mmHg): 109 (QS system process) : 60 (QS system process) : 79 (QS system process) Pulse: 82 (QS system process) LaborFlag: Antepartum (QS system process)
[2016-10-20] MEDS ORDERED: LIDOCAINE 1% INJ-PF (10 MG/ML) 30 ML SDV ONE (18:59)
[2016-10-20] MEDS ORDERED: OXYTOCIN/NORMAL SALINE 20 UNIT/1,000 ML RTUINJ ONE (18:59)
[2016-10-20] MEDS ORDERED: MISOPROSTOL 0.2 MG TABLET ONE (18:59)
--- NOTE | 2016-10-20 20:00 | L&D Flow Sheet ---
LD Flowsheet Datetime Report Generated by CPN: 10/20/2016 20:00 Datetime: 10/20/2016 19:58 NBP Sys/Carolyn/Mean (mmHg): 126 (QS system process) : 78 (QS system process) : 96 (QS system process) Pulse: 86 (QS system process) LaborFlag: Antepartum (QS system process) Datetime: 10/20/2016 19:53 NBP Sys/Carolyn/Mean (mmHg): 122 (QS system process) : 62 (QS system process) : 85 (QS system process) Pulse: 171 (QS system process) LaborFlag: Antepartum (QS system process) Datetime: 10/20/2016 19:48 NBP Sys/Carolyn/Mean (mmHg): 127 (QS system process) : 61 (QS system process) : 88 (QS system process) Pulse: 84 (QS system process) LaborFlag: Antepartum (QS system process) Datetime: 10/20/2016 19:43 NBP Sys/Carolyn/Mean (mmHg): 131 (QS system process) : 59 (QS system process) : 85 (QS system process) Pulse: 81 (QS system process) LaborFlag: Antepartum (QS system process) Datetime: 10/20/2016 19:39 NBP Sys/Carolyn/Mean (mmHg): 129 (QS system process) : 67 (QS system process) : 89 (QS system process) Pulse: 90 (QS system process) LaborFlag: Antepartum (QS system process) Datetime: 10/20/2016 19:34 NBP Sys/Carolyn/Mean (mmHg): 140 (QS system process) : 52 (QS system process) : 75 (QS system process) Pulse: 90 (QS system process) LaborFlag: Antepartum (QS system process) Datetime: 10/20/2016 19:28 NBP Sys/Carolyn/Mean (mmHg): 134 (QS system process) : 60 (QS system process) : 86 (QS system process) Pulse: 83 (QS system process) LaborFlag: Antepartum (QS system process) Datetime: 10/20/2016 19:23 NBP Sys/Carolyn/Mean (mmHg): 126 (QS system process) : 59 (QS system process) : 85 (QS system process) Pulse: 86 (QS system process) LaborFlag: Antepartum (QS system process) Datetime: 10/20/2016 19:20 Pain Scale: 0 (Vandana Heath RN) Pain Presence: None/Denies (Vandana Heath RN) Pain Type: Dull (Vandana Heath, ROSALVA) LaborFlag: Antepartum (QS system process) Datetime: 10/20/2016 19:18 NBP Sys/Carolyn/Mean (mmHg): 125 (QS system process) : 66 (QS system process) : 88 (QS system process) Pulse: 85 (QS system process) LaborFlag: Antepartum (QS system process) Datetime: 10/20/2016 19:14 NBP Sys/Carolyn/Mean (mmHg): 133 (QS system process) : 63 (QS system process) : 92 (QS system process) Pulse: 83 (QS system process) LaborFlag: Antepartum (QS system process) Datetime: 10/20/2016 19:13 NBP Sys/Carolyn/Mean (mmHg): 130 (QS system process) : 63 (QS system process) : 91 (QS system process) Pulse: 90 (QS system process) LaborFlag: Antepartum (QS system process) Datetime: 10/20/2016 19:08 NBP Sys/Carolyn/Mean (mmHg): 138 (QS system process) : 63 (QS system process) : 88 (QS system process) Pulse: 95 (QS system process) LaborFlag: Antepartum (QS system process) Datetime: 10/20/2016 19:07 Stage 2 Comments: Pitocin bolusing. (Lexy Alvarado, RN) Datetime: 10/20/2016 19:05 Stage 2 Comments: viable girl; see delivery summary. (Lexy Alvarado, RN) Datetime: 10/20/2016 19:00 Monitor Mode: External US (Lexy Alvarado RN) FHR Baseline Rate : 140 (Lexy Alvarado, RN) Variability: Moderate 6-25 bpm (Lexy Alvarado, RN) Accelerations: None (Lexy Alvarado, RN) Decelerations: None (Lexy Alvarado, ROSALVA) Datetime: 10/20/2016 18:58 NBP Sys/Carolyn/Mean (mmHg): 149 (QS system process) : 64 (QS system process) : 92 (QS system process) LaborFlag: Antepartum (QS system process) Datetime: 10/20/2016 18:55 Communication: Provider Orders Received; Call/Page Placed to Provider (Lexy Alvarado RN) Provider Notified (Name): Dr. Vaz (Lexy Alvarado RN) Communication Comments: Notified of SVE and imminent delivery. (Lexy Alvarado RN) Datetime: 10/20/2016 18:54 Dilatation (cm): 10.0 (Lexy Alvarado RN) Effacement (%): 100 (Lexy Alvarado RN) Station: 1 (Lexy Alvarado RN) Exam by: aNtacha Alvarado RN (Lexy Alvarado RN) Datetime: 10/20/2016 18:53 NBP Sys/Carolyn/Mean (mmHg): 122 (QS system process) : 62 (QS system process) : 84 (QS system process) Pulse: 80 (QS system process) LaborFlag: Antepartum (QS system process) Datetime: 10/20/2016 18:52 Dilatation (cm): 6.0 (Lexy Alvarado, ROSALVA) Effacement (%): 100 (Lexy Alvarado RN) Station: 0 (Lexy Alvarado RN) Exam by: Natacha Alvarado RN (Lexy Alvarado RN) Datetime: 10/20/2016 18:49 NBP Sys/Carolyn/Mean (mmHg): 124 (QS system process) : 61 (QS system process) : 83 (QS system process) Pulse: 79 (QS system process) LaborFlag: Antepartum (QS system process) Datetime: 10/20/2016 18:44 NBP Sys/Carolyn/Mean (mmHg): 134 (QS system process) : 71 (QS system process) : 90 (QS system process) Pulse: 90 (QS system process) Dilatation (cm): 4.0 (Lexy Alvarado RN) Effacement (%): 90 (Lexy Alvarado RN) Station: 0 (Lexy Alvarado RN) Exam by: Natacha Alvarado RN (Lexy Alvarado RN) Vaginal Bleeding: Normal Show (Lexy Alvarado RN) Cervix, Consistency: Soft (Lexy Alvarado RN) Cervix, Position: Anterior (Lexy Alvarado RN) LaborFlag: Antepartum (QS system process) Datetime: 10/20/2016 18:38 NBP Sys/Carolyn/Mean (mmHg): 111 (QS system process) : 69 (QS system process) : 85 (QS system process) Pulse: 77 (QS system process) LaborFlag: Antepartum (QS system process) Datetime: 10/20/2016 18:33 NBP Sys/Carolyn/Mean (mmHg): 109 (QS system process) : 65 (QS system process) : 83 (QS system process) Pulse: 72 (QS system process) LaborFlag: Antepartum (QS system process) Datetime: 10/20/2016 18:30 Monitor Mode: External US (Lexy Alvarado, RN) FHR Baseline Rate : 135 (Lexy Alvarado, RN) Variability: Moderate 6-25 bpm (Lexy Alvarado, RN) Accelerations: 15X15 (Lexy Alvarado, RN) Decelerations: None (Lexy Alvarado, RN) Datetime: 10/20/2016 18:28 NBP Sys/Carolyn/Mean (mmHg): 108 (QS system process) : 55 (QS system process) : 77 (QS system process) Pulse: 70 (QS system process) LaborFlag: Antepartum (QS system process) Datetime: 10/20/2016 18:23 NBP Sys/Carolyn/Mean (mmHg): 111 (QS system process) : 62 (QS system process) : 80 (QS system process) Pulse: 82 (QS system process) LaborFlag: Antepartum (QS system process) Datetime: 10/20/2016 18:18 NBP Sys/Carolyn/Mean (mmHg): 109 (QS system process) : 61 (QS system process) : 76 (QS system process) Pulse: 71 (QS system process) LaborFlag: Antepartum (QS system process) Datetime: 10/20/2016 18:15 Monitor Mode: External US (Lexy Alvarado RN) FHR Baseline Rate : 135 (Lexy Alvarado RN) Variability: Moderate 6-25 bpm (Lexy Alvarado, RN) Accelerations: 15X15 (Lexy Alvarado, RN) Decelerations: None (Lexy Alvarado RN) Datetime: 10/20/2016 18:13 NBP Sys/Carolyn/Mean (mmHg): 120 (QS system process) : 68 (QS system process) : 86 (QS system process) Pulse: 75 (QS system process) LaborFlag: Antepartum (QS system process) Datetime: 10/20/2016 18:08 NBP Sys/Carolyn/Mean (mmHg): 122 (QS system process) : 70 (QS system process) : 90 (QS system process) Pulse: 77 (QS system process) LaborFlag: Antepartum (QS system process) Datetime: 10/20/2016 18:03 NBP Sys/Carolyn/Mean (mmHg): 120 (QS system process) : 58 (QS system process) : 82 (QS system process) Pulse: 82 (QS system process) LaborFlag: Antepartum (QS system process) Datetime: 10/20/2016 18:00 Monitor Mode: External US (Lexy Alvarado RN) FHR Baseline Rate : 135 (Lexy Alvarado RN) Variability: Moderate 6-25 bpm (Lexy Alvarado RN) Accelerations: 15X15 (Lexy Alvarado RN) Decelerations: None (Lexy Alvarado RN)
--- NOTE | 2016-10-20 22:00 | L&D Flow Sheet ---
LD Flowsheet Datetime Report Generated by CPN: 10/20/2016 22:00 Datetime: 10/20/2016 21:13 NBP Sys/Carolyn/Mean (mmHg): 110 (QS system process) : 59 (QS system process) : 80 (QS system process) Pulse: 94 (QS system process) LaborFlag: Antepartum (QS system process) Datetime: 10/20/2016 21:08 NBP Sys/Carolyn/Mean (mmHg): 107 (QS system process) : 58 (QS system process) : 78 (QS system process) Pulse: 96 (QS system process) LaborFlag: Antepartum (QS system process) Datetime: 10/20/2016 21:03 NBP Sys/Carolyn/Mean (mmHg): 116 (QS system process) : 58 (QS system process) : 81 (QS system process) Pulse: 98 (QS system process) LaborFlag: Antepartum (QS system process) Datetime: 10/20/2016 20:58 NBP Sys/Carolyn/Mean (mmHg): 118 (QS system process) : 61 (QS system process) : 82 (QS system process) Pulse: 92 (QS system process) LaborFlag: Antepartum (QS system process) Datetime: 10/20/2016 20:53 NBP Sys/Carolyn/Mean (mmHg): 120 (QS system process) : 64 (QS system process) : 82 (QS system process) Pulse: 96 (QS system process) LaborFlag: Antepartum (QS system process) Datetime: 10/20/2016 20:48 NBP Sys/Carolyn/Mean (mmHg): 118 (QS system process) : 57 (QS system process) : 82 (QS system process) Pulse: 98 (QS system process) LaborFlag: Antepartum (QS system process) Datetime: 10/20/2016 20:43 NBP Sys/Carolyn/Mean (mmHg): 124 (QS system process) : 58 (QS system process) : 84 (QS system process) Pulse: 97 (QS system process) LaborFlag: Antepartum (QS system process) Datetime: 10/20/2016 20:38 NBP Sys/Carolyn/Mean (mmHg): 119 (QS system process) : 60 (QS system process) : 87 (QS system process) Pulse: 85 (QS system process) LaborFlag: Antepartum (QS system process) Datetime: 10/20/2016 20:33 NBP Sys/Carolyn/Mean (mmHg): 118 (QS system process) : 58 (QS system process) : 82 (QS system process) Pulse: 90 (QS system process) LaborFlag: Antepartum (QS system process) Datetime: 10/20/2016 20:28 NBP Sys/Carolyn/Mean (mmHg): 123 (QS system process) : 58 (QS system process) : 83 (QS system process) Pulse: 100 (QS system process) LaborFlag: Antepartum (QS system process) Datetime: 10/20/2016 20:23 NBP Sys/Carolyn/Mean (mmHg): 121 (QS system process) : 57 (QS system process) : 82 (QS system process) Pulse: 87 (QS system process) LaborFlag: Antepartum (QS system process) Datetime: 10/20/2016 20:18 NBP Sys/Carolyn/Mean (mmHg): 118 (QS system process) : 59 (QS system process) : 76 (QS system process) Pulse: 95 (QS system process) LaborFlag: Antepartum (QS system process) Datetime: 10/20/2016 20:13 NBP Sys/Carolyn/Mean (mmHg): 137 (QS system process) : 62 (QS system process) : 89 (QS system process) Pulse: 93 (QS system process) LaborFlag: Antepartum (QS system process) Datetime: 10/20/2016 20:08 NBP Sys/Carolyn/Mean (mmHg): 137 (QS system process) : 63 (QS system process) : 91 (QS system process) Pulse: 89 (QS system process) LaborFlag: Antepartum (QS system process) Datetime: 10/20/2016 20:03 NBP Sys/Carolyn/Mean (mmHg): 145 (QS system process) : 67 (QS system process) : 97 (QS system process) Pulse: 101 (QS system process) LaborFlag: Antepartum (QS system process)
--- NOTE | 2016-10-20 23:08 | Admission Physical ---
Datetime Report Generated by CPN: 10/20/2016 23:08 CURRENT ADMISSION Chief Complaint: Scheduled Induction of Labor Indication for Induction: Oligohydramnios Admit Plan: Admit to Unit; Initiate Labor Induction Protocol Admit Plan- Other: oligohydramnios and IUGR. admit for induction. may have epidural when ready ALLERGIES Medication Allergies: Yes Medication Allergies: tramadol (10/20/2016) Latex: No Latex Allergies Food Allergies: none Environmental Allergies: none OBSTETRICAL HISTORY EDC: 10/22/2016 00:00 : 2 Para: 1 Term: 1 : 0 SAB: 0 IAB: 0 Ectopic: 0 Livin Cesareans: 0 VBACs: 0 Multiple Births: 0 Gestational Diabetes: No Rh Sensitization: No Incompetent Cervix: No PEBBLES: No Infertility: No ART Treatment: No Uterine Anomaly: No IUGR: No Hx Previous C/S: No Macrosomia: No Hx Loss/Stillborn: No PIH: No Hx : No Placenta Previa/Abruption: No Depression/PP Depression: Yes PTL/PROM: No Post Hemorrhage: No Current Procedures: Ultrasound; NST Obstetrical History Comments: G-1 at 40.2 weeks (2004) possible pp depression no dx or treatment G2: Current, GDM and oligo SEE RECORDS Alcohol: No Marijuana : No Cocaine: No Other Illicit Drugs: No Cigarettes: Current Everyday Smoker. [id number] Cigarette Frequency: > 10 per day Advised to Stop: Yes MEDICAL HISTORY Diabetes: No Diabetes Type: Gestational Diabetes Blood Transfusion: No Pulmonary Disease (Asthma, TB): No Breast Disease: No Hypertension: No [employer] Surgery: No Heart Disease: No Hosp/Surgery: Yes Autoimmune Disorder: No Anesthetic Complications: No Kidney Disease: No Abnormal Pap Smear: Yes Neuro/Epilepsy: No Psychiatric Disorders: No Other Medical Diseases: No Hepatitis/Liver Disease: No Significant Family History: No Varicosities/Phlebitis: No Trauma/Violence : No Thyroid Dysfunction: No Medical History Comments: G1 possible pp depression, tonsillectomy age 3 and wisdom teeth extraction 2001, bobbi 2004. H/o abnormal pap HPV 2008 BRCA 1 positive considering mastectomy after delivery INFECTIOUS HISTORY Gonorrhea: No Genital Herpes: No Chlamydia: No Tuberculosis: No Syphilis: No Hepatitis: No HIV/AIDS Exposure: No Rash or Viral Illness: No HPV: Yes Infectious History Comments: h/o HPV 2008 PHYSICAL EXAM General: Normal HEENT: Normal Neurologic: Normal Thyroid: Normal Heart: Normal Lungs: Normal Breast: Normal Back: Normal Abdomen: Normal Genitourinary Exam: Normal Extremities: Normal DTRs: Normal Pelvic Type: Adequate Vital Signs: Reviewed (Annotations: Data stored by [facility] on behalf of user) VAGINAL EXAM Dilatation: 2 Effacement: 0 Station: -3 MEMBRANES Pooling: Negative Membranes: Intact FETUS A EGA: 39.4 Monitoring: External US FHR- Baseline: 150 Variability: Moderate 6-25bpm Accelerations: 15X15 Decelerations: None FHR Category: Category I Estimated Weight (gm): 3700 Presentation: Vertex PLANS FOR LABOR AND DELIVERY Labor and Delivery: None Pain Management: Epidural Feeding Preference: Breast Benefit of Breast Feed Discussed: Yes Circumcision: N/A INFORMED CONSENT Signature: with User ID: [email or web address]
[2016-10-21] MEDS ORDERED: ZOLPIDEM TARTRATE 5 MG TABLET PO PRN (03:38)
[2016-10-21] MEDS ORDERED: BENZOCAINE/MENTHOL AEROSOL SPRAY 56 ML TOP PRN (03:38)
[2016-10-21] MEDS ORDERED: MEASLES,MUMPS&RUBELLA VACC/PF 0.5 ML VIAL SUBCUT PRN (03:38)
[2016-10-21] MEDS ORDERED: DIBUCAINE 1% OINTMENT 28 GM TP PRN (03:38)
[2016-10-21] MEDS ORDERED: DIPH/PERTUSS(ACELL)/TETANUS VAC/PF 0.5 ML SYR (>=10YO) IM PRN (03:38)
[2016-10-21] MEDS ORDERED: ACETAMINOPHEN WITH CODEINE #3 TABLET PO PRN (03:38)
[2016-10-21] MEDS: ACETAMINOPHEN WITH CODEINE #3 TABLET PO PRN ×4 (04:29→23:32)
[2016-10-21] MEDS: IBUPROFEN 800 MG TABLET PO SCH ×3 (05:56→22:05)
--- NOTE | 2016-10-21 07:00 | L&D Flow Sheet ---
LD Flowsheet Datetime Report Generated by CPN: 10/21/2016 07:00 Datetime: 10/20/2016 23:00 NBP Sys/Carolyn/Mean (mmHg): 115 (QS system process) : 66 (QS system process) : 85 (QS system process) Pulse: 118 (QS system process) Temperature (F): 97.9 (Vandana Heath RN) Temperature (C): 36.6 (QS system process) Temperature Route: Oral (Vandana Heath RN) Datetime: 10/20/2016 22:05 Stage of : Recovery (Vandana Chalman, RN) Datetime: 10/20/2016 21:13 NBP Sys/Carolyn/Mean (mmHg): 110 (QS system process) : 59 (QS system process) : 80 (QS system process) Pulse: 94 (QS system process) Datetime: 10/20/2016 21:08 NBP Sys/Carolyn/Mean (mmHg): 107 (QS system process) : 58 (QS system process) : 78 (QS system process) Pulse: 96 (QS system process) Datetime: 10/20/2016 21:03 NBP Sys/Carolyn/Mean (mmHg): 116 (QS system process) : 58 (QS system process) : 81 (QS system process) Pulse: 98 (QS system process) Datetime: 10/20/2016 20:58 NBP Sys/Carolyn/Mean (mmHg): 118 (QS system process) : 61 (QS system process) : 82 (QS system process) Pulse: 92 (QS system process) Datetime: 10/20/2016 20:53 NBP Sys/Carolyn/Mean (mmHg): 120 (QS system process) : 64 (QS system process) : 82 (QS system process) Pulse: 96 (QS system process) Datetime: 10/20/2016 20:48 NBP Sys/Carolyn/Mean (mmHg): 118 (QS system process) : 57 (QS system process) : 82 (QS system process) Pulse: 98 (QS system process) Datetime: 10/20/2016 20:43 NBP Sys/Carolyn/Mean (mmHg): 124 (QS system process) : 58 (QS system process) : 84 (QS system process) Pulse: 97 (QS system process) Datetime: 10/20/2016 20:38 NBP Sys/Carolyn/Mean (mmHg): 119 (QS system process) : 60 (QS system process) : 87 (QS system process) Pulse: 85 (QS system process) Datetime: 10/20/2016 20:33 NBP Sys/Carolyn/Mean (mmHg): 118 (QS system process) : 58 (QS system process) : 82 (QS system process) Pulse: 90 (QS system process) Datetime: 10/20/2016 20:28 NBP Sys/Carolyn/Mean (mmHg): 123 (QS system process) : 58 (QS system process) : 83 (QS system process) Pulse: 100 (QS system process) Datetime: 10/20/2016 20:23 NBP Sys/Carolyn/Mean (mmHg): 121 (QS system process) : 57 (QS system process) : 82 (QS system process) Pulse: 87 (QS system process) Datetime: 10/20/2016 20:18 NBP Sys/Carolyn/Mean (mmHg): 118 (QS system process) : 59 (QS system process) : 76 (QS system process) Pulse: 95 (QS system process) Datetime: 10/20/2016 20:13 NBP Sys/Carolyn/Mean (mmHg): 137 (QS system process) : 62 (QS system process) : 89 (QS system process) Pulse: 93 (QS system process) Datetime: 10/20/2016 20:08 NBP Sys/Carolyn/Mean (mmHg): 137 (QS system process) : 63 (QS system process) : 91 (QS system process) Pulse: 89 (QS system process) Datetime: 10/20/2016 20:03 NBP Sys/Carolyn/Mean (mmHg): 145 (QS system process) : 67 (QS system process) : 97 (QS system process) Pulse: 101 (QS system process) Datetime: 10/20/2016 19:58 NBP Sys/Carolyn/Mean (mmHg): 126 (QS system process) : 78 (QS system process) : 96 (QS system process) Pulse: 86 (QS system process) Datetime: 10/20/2016 19:53 NBP Sys/Carolyn/Mean (mmHg): 122 (QS system process) : 62 (QS system process) : 85 (QS system process) Pulse: 171 (QS system process) Datetime: 10/20/2016 19:48 NBP Sys/Carolyn/Mean (mmHg): 127 (QS system process) : 61 (QS system process) : 88 (QS system process) Pulse: 84 (QS system process) Datetime: 10/20/2016 19:43 NBP Sys/Carolyn/Mean (mmHg): 131 (QS system process) : 59 (QS system process) : 85 (QS system process) Pulse: 81 (QS system process) Datetime: 10/20/2016 19:39 NBP Sys/Carolyn/Mean (mmHg): 129 (QS system process) : 67 (QS system process) : 89 (QS system process) Pulse: 90 (QS system process) Datetime: 10/20/2016 19:34 NBP Sys/Carolyn/Mean (mmHg): 140 (QS system process) : 52 (QS system process) : 75 (QS system process) Pulse: 90 (QS system process) Datetime: 10/20/2016 19:28 NBP Sys/Carolyn/Mean (mmHg): 134 (QS system process) : 60 (QS system process) : 86 (QS system process) Pulse: 83 (QS system process) Datetime: 10/20/2016 19:23 NBP Sys/Carolyn/Mean (mmHg): 126 (QS system process) : 59 (QS system process) : 85 (QS system process) Pulse: 86 (QS system process) Datetime: 10/20/2016 19:20 Pain Scale: 0 (Vandana Ivana, RN) Pain Presence: None/Denies (Vandana Ivana, RN) Pain Type: Dull (Vandana Chalman, RN) Datetime: 10/20/2016 19:18 NBP Sys/Carolyn/Mean (mmHg): 125 (QS system process) : 66 (QS system process) : 88 (QS system process) Pulse: 85 (QS system process) Datetime: 10/20/2016 19:15 Communication Comments: Report given to A. Ivana, RN. Care relinquished. (Lexy Alvarado, ) Datetime: 10/20/2016 19:14 NBP Sys/Carolyn/Mean (mmHg): 133 (QS system process) : 63 (QS system process) : 92 (QS system process) Pulse: 83 (QS system process) Datetime: 10/20/2016 19:13 NBP Sys/Carolyn/Mean (mmHg): 130 (QS system process) : 63 (QS system process) : 91 (QS system process) Pulse: 90 (QS system process) Temperature (F): 98.0 (Vandana Heath, RN) Temperature (C): 36.7 (QS system process) Temperature Route: Oral (Vandana Heath, RN) Datetime: 10/20/2016 19:10 Stage of : Recovery (Vandana Heath, RN) Datetime: 10/20/2016 19:08 NBP Sys/Carolyn/Mean (mmHg): 138 (QS system process) : 63 (QS system process) : 88 (QS system process) Pulse: 95 (QS system process) LaborFlag: Antepartum (QS system process) Datetime: 10/20/2016 19:07 Stage 2 Comments: Pitocin bolusing. (Lexyroxi Angeleson, RN) Datetime: 10/20/2016 19:05 Stage 2 Comments: viable girl; see delivery summary. (Lexy Alvarado, RN) Datetime: 10/20/2016 19:00 Monitor Mode: External; Palpation (Gabi Cleveland, RN) Frequency (min): 2-3 (Gabi Cleveland, RN) Quality: Moderate (Gabi Cleveland RN) Duration (sec): 40-60 (Gabi Cleveland RN) Duration Criteria: Less than Two 120 Second Contractions (Gabi Cleveland RN) Pattern: Normal: <= 5 Contractions in 10 Minutes (Gabi Cleveland RN) Resting Tone (Palpate): Relaxed (Gabi Cleveland RN) Monitor Mode: External US (Lexy Alvarado RN) FHR Baseline Rate : 140 (Lexy Alvarado RN) Variability: Moderate 6-25 bpm (Lexy Alvarado RN) Accelerations: None (Lexy Alvaardo RN) Decelerations: None (Lexy Alvarado RN) Pitocin (milliunit): Pitocin Remains (milliunits) @ 14 (Lexy Alvarado RN)
[2016-10-21 09:30] LABS: HEMATOCRIT 30.2 % (36.0-47.0); HEMOGLOBIN 10.1 g/dL (12.0-15.5); HGB HCT DIFFERENCE 0.1; MEAN CORPUSCULAR HEMOGLOBIN 25.9 pg (27.0-33.4); MEAN CORPUSCULAR HGB CONC 33.3 g/dL (32.0-36.0); MEAN CORPUSCULAR VOLUME 78 fl (80-97); RED BLOOD COUNT 3.88 10^6/uL (3.72-5.28); RED CELL DISTRIBUTION WIDTH 16.3 % (11.5-14.0); WHITE BLOOD COUNT 10.1 10^3/uL (4.0-10.5)
[2016-10-21] MEDS: SENNOSIDES/DOCUSATE 8.6-50 MG 1 EACH TABLET PO SCH (09:54)
[2016-10-21] MEDS: DOCUSATE SODIUM 100 MG CAPSULE PO SCH ×2 (09:54→18:06)
[2016-10-21] MEDS: FERROUS SULFATE 325 MG TABLET PO SCH ×2 (09:55→18:06)
[2016-10-21] MEDS: PRENATAL VITAMIN W-O CA NO5/FE FUMARATE/FA CAPSULE PO SCH (09:55)
--- NOTE | 2016-10-21 11:46 | PDOC PROGRESS REPORT ---
Subjective-OB Subjective: Post Delivery Day: 31 year old. Denies any needs at this time. Pt doing well, reports light bleeding, regular diet and voiding without difficulty. Physical Exam (OB) Vital Signs: Temp Pulse Resp BP Pulse Ox 98.1 F 88 16 122/68 99 10/21/16 08:38 10/21/16 08:38 10/21/16 08:38 10/21/16 08:38 10/21/16 08:38 Intake & Output 10/20/16 10/21/16 10/22/16 06:59 06:59 06:59 Weight 119.45 kg - Lochia Lochia Amount: Small 10-25 ml Lochia Color: Rubra/Red - Abdomen Description: Soft, Round Hernia Present: No Fundal Description: Firm, Midline Fundal Height: u/u - u/2 Objective-Diagnostic Laboratory: 10/21/16 09:13 10/21/16 09:13 WBC 10.1 RBC 3.88 Hgb 10.1 L Hct 30.2 L MCV 78 L MCH 25.9 L MCHC 33.3 RDW 16.3 H Plt Count 236 Assessment and Plan(PN) - Assessment and Plan (1) Vaginal delivery Is this a current diagnosis for this admission?: Yes (2) Gestational diabetes Qualifiers: Gestational diabetes mellitus control: diet-controlled Trimester: unspecified trimester Qualified Code(s): O24.410 - Gestational diabetes mellitus in , diet controlled Is this a current diagnosis for this admission?: Yes - Time Spent with Patient Time with patient: Less than 15 minutes Medications reviewed and adjusted accordingly: Yes - Disposition Anticipated Discharge: Home Within: within 48 hours
--- NOTE | 2016-10-21 18:00 | L&D General Admission ---
General Admit Datetime Report Generated by CPN: 10/21/2016 18:00 INFORMATION Patient Age: 31 (10/04/2016 11:18:QS system process) EDC: 10/22/2016 00:00 (10/04/2016 12:19:SUNNY Higgins) : 2 (10/04/2016 12:19:SUNNY Higgins) Para: 1 (10/17/2016 12:07:Lucy Yi RN) Term: 1 (10/04/2016 12:19:SUNNY Higgins) : 0 (10/04/2016 12:19:SUNNY Higgins) Spontaneous Abortions: 0 (10/04/2016 12:19:SUNNY Higgins) Induced Abortions: 0 (10/04/2016 12:19:SUNNY Higgins) Livin (10/04/2016 12:19:SUNNY Higgins) Cesareans: 0 (10/04/2016 12:19:SUNNY Riggins) VBACs: 0 (10/04/2016 12:19:SUNNY Riggins) Ectopic: 0 (10/04/2016 12:19:SUNNY Riggins) Multiple Births: 0 (10/04/2016 12:19:SUNNY Riggins) Baby, Number in Womb: 1 (10/17/2016 12:07:Lucy Yi RN) CARE [facility] Janitorial Manager[facility] (10/04/2016 12:19:SUNNY Riggins) Month of 1st Visit: February (10/04/2016 12:19:SUNNY Riggins) Adequate Care: Yes (10/04/2016 12:19:SUNNY Riggins) Prepregnancy Weight (lb): 237 (10/04/2016 12:19:SUNNY Riggins) Prepregnancy Weight (kg): 107.7 (10/04/2016 12:19:QS system process) Height (in): 66 (10/20/2016 23:06:QS system process) ALLERGIES Medication Allergy: Yes (10/04/2016 12:19:SUNNY Higgins) Medication Allergies: tramadol (10/20/2016) (10/20/2016 05:36:QS system process) Latex Allergy: No Latex Allergies (10/04/2016 12:19:SUNNY Riggins) Food Allergies: none (10/04/2016 12:19:Starla Arreola RN) Environmental Allergies: none (10/04/2016 12:19:Starla Arreola RN) COMMUNICATION Primary Language: Zimbabwean (10/04/2016 12:19:SUNNY Riggins) Medical Tx Preferred Language: Zimbabwean (10/04/2016 12:19:SUNNY Riggins) Communication Barrier(s): None (10/04/2016 12:19:SUNNY Riggins) DEMOGRAPHICS Address: [address] [place] [id number] (10/04/2016 11:18:QS system process) Zipcode: [address] (10/04/2016 11:18:QS system process) Home (10/04/2016 11:18:QS system process) SSN: [id number] (10/04/2016 11:18:QS system process) Next of Kin Name: ESTELLA PALMA (10/04/2016 11:18:QS system process) Next of Kin (10/04/2016 11:18:QS system process) Next of Kin Relationship: OR (10/04/2016 11:18:QS system process) Date of : 1985 (10/04/2016 11:18:QS system process) Marital Status: (10/04/2016 11:18:QS system process) Sex: Female (10/04/2016 11:18:QS system process) Occupation: Homemaker (10/04/2016 12:19:SUNNY Riggins) Race: (10/04/2016 11:18:QS system process) Ethnicity: Non- or (10/04/2016 11:18:QS system process) Alevism: None (10/04/2016 11:18:QS system process) Education: 12 (10/04/2016 12:19:SUNNY Riggins) FOB Involved: Yes (10/04/2016 12:19:SUNNY Riggins) Father of Baby Name: Roel Bolaños (10/04/2016 12:19:SUNNY Riggins) DRUG AND ALCOHOL USE Alcohol: No (10/04/2016 12:19:SUNNY Riggins) Cigarettes: Current Everyday Smoker. [id number] (10/04/2016 12:19:SUNNY Riggins) Average Cigarettes Smoked: > 10 per day (10/04/2016 12:19:SUNNY Riggins) Advised to Stop Smoking: Yes (10/04/2016 12:19:Hali Camp, RN) Marijuana: No (10/04/2016 12:19:Hali Camp, [facility]) Cocaine: No (10/04/2016 12:19:Hali Camp, [facility]) Other Illicit Drugs: No (10/04/2016 12:19:Hali Camp, [facility]) VACCINE HISTORY Influenza Vaccine: Yes (10/04/2016 12:19:Hali Camp, [facility]) Influenza Date: 08/29/2016 (10/04/2016 12:19:Hali Camp, [facility]) Pneumococcal Vaccine: No (10/04/2016 12:19:Hali Camp, [facility]) Tetanus Vaccine: Yes (10/04/2016 12:19:Hali Camp, [facility]) Tetanus Date: 08/29/2016 (10/04/2016 12:19:Hali Camp, [facility]) Tdap Vaccine: Yes (10/04/2016 12:19:Hali Camp, [facility]) Tdap Date: 08/29/2016 (10/04/2016 12:19:Hali Camp, [facility]) Hepatitis B Vaccine: Yes (10/04/2016 12:19:Hali Camp, [facility]) Hepatitis B Vaccine Date : 2001 (10/04/2016 12:19:Hali Camp, [facility]) Collections And Archives Director: [facility] (10/04/2016 12:19:SUNNY Riggins) Feeding Preference: Breast (10/04/2016 12:19:SUNNY Riggins) Benefit of Breast Feed Discussed: Yes (10/04/2016 12:19:SUNNY Riggins) Circumcision: N/A (10/04/2016 12:19:SUNNY Riggins) Classes Attended: Unknown (10/04/2016 12:19:SUNNY Riggins) Tubal Ligation: No (10/04/2016 12:19:SUNNY Riggnis) Tubal Authorization Signed: No (10/04/2016 12:19:SUNNY Riggins) Consent: N/A (10/04/2016 12:19:SUNNY Riggins) Consent Signed: No (10/04/2016 12:19:SUNNY Riggins) Pain Management Plans: Epidural (10/04/2016 12:19:SUNNY Riggins) Plans for Labor and Delivery: None (10/04/2016 12:19:SUNNY Riggins) Support Person: Estella Palma (10/04/2016 12:19:SUNNY Riggins) Support Person Relationship: Other (10/04/2016 12:19:SUNNY Riggins) Other Relationship: grandmother (10/04/2016 12:19:SUNNY Riggins) Cultural/Spritual Practice: No (10/04/2016 12:19:SUNNY Riggins) Spir/Cult Dietary Needs: No (10/04/2016 12:19:SUNNY Riggins) LIVING SITUATION/DISCHARGE PLAN Living Arrangements: House (10/04/2016 12:19:SUNNY Riggins) Adequate Access to:: Electric; Heat; Refrigeration; Plumbing/Running water; Phone; Transportation (10/04/2016 12:19:SUNNY Riggins) WIC Program: Needs referral (10/04/2016 12:19:SUNNY Riggins) Discharge Senior Scientist Person: Estella Palma (10/04/2016 12:19:SUNNY Riggins) Person to Help after Discharge: Avis Nuñez (10/04/2016 12:19:SUNNY Riggins) Currently Using Commun Resources: No (10/04/2016 12:19:SUNNY Riggins) Outside Agency/Ammunition Assembly Ii Laborer: No (10/04/2016 12:19:SUNNY Riggins) Car Seat for Discharge: Yes (10/04/2016 12:19:SUNNY Riggins) Adoption Requested: No (10/04/2016 12:19:SUNNY Riggins) Pt Contact w/infant Post : N/A (10/04/2016 12:19:SUNNY Riggins) LABS Blood Type: O Positive (10/04/2016 12:19:Aysha Root RN) Antibody Screen: negative (10/04/2016 12:19:Starla Arreola RN) Hemoglobin: 10.1 L (10/21/2016 09:13:QS system process) Hematocrit: 30.2 L (10/21/2016 09:13:QS system process) MCV: 78 L (10/21/2016 09:13:QS system process) Group Beta Strep: Negative (10/19/2016 21:32:Starla Arreola RN) Gonorrhea: Negative (10/04/2016 12:19:Aysha Root RN) Chlamydia: Negative (10/04/2016 12:19:Aysha Root RN) RPR/VDRL: Nonreactive (10/04/2016 12:19:Starla Arreola RN) HIV Exposure Test: Negative (10/04/2016 12:19:Aysha Root RN) Hepatitis B: Negative (10/04/2016 12:19:Starla Arreola RN) Rubella: Immune (10/04/2016 12:19:Starla Arreola RN) Varicella: Susceptible (10/04/2016 12:19:Starla Arreola RN) OB/PREVIOUS HISTORY Previous Procedures: Ultrasound; NST (10/04/2016 12:19:SUNNY Riggins) Current Procedures: Ultrasound; NST (10/04/2016 12:19:SUNNY Riggins) History of Previous : No (10/04/2016 12:19:SUNNY Riggins) History of Gestational Diabetes: No (10/04/2016 12:19:SUNNY Riggins) History of PIH: No (10/04/2016 12:19:SUNNY Riggins) History of Incompetent Cervix: No (10/04/2016 12:19:Hali Max [facility]) History of Placenta Previa/Abrup: No (10/04/2016 12:19:Hali Max [facility]) History of Macrosomia: No (10/04/2016 12:19:Hali Max [facility]) History of IUGR: No (10/04/2016 12:19:Hali Max [facility]) History of Hemorrhage: No (10/04/2016 12:19:Hali Max [facility]) History of Loss/Stillborn: No (10/04/2016 12:19:Hali Max [facility]) History of : No (10/04/2016 12:19:Hali Max [facility]) History of D (Rh) Sensitization: No (10/04/2016 12:19:Hali Max [facility]) History Recurrent Loss/Stillborn: No (10/04/2016 12:19:Hali Max [facility]) History Depression/PP Depression: Yes (10/04/2016 12:19:Hali Max [facility]) History of Uterine Anomaly/PEBBLES: No (10/04/2016 12:19:Hali Max [facility]) History of Infertility: No (10/04/2016 12:19:Hali Max [facility]) History of ART Treatment: No (10/04/2016 12:19:Hali Max [facility]) History of PEBBLES: No (10/04/2016 12:19:Hali Max [facility]) Comments Obstetrical History: G-1 at 40.2 weeks (2004) possible pp depression no dx or treatment G2: Current, GDM and oligo (10/04/2016 12:19:Lexy Alvarado RN) MEDICAL HISTORY Med Hx Diabetes: No (10/04/2016 12:19:SUNNY Riggins) Diabetes Type: Gestational Diabetes (10/04/2016 12:19:SUNNY Riggins) Med Hx Hypertension: No (10/04/2016 12:19:SUNNY Riggins) Med Hx Heart Disease: No (10/04/2016 12:19:SUNNY Riggins) Med Hx Autoimmune Disorder: No (10/04/2016 12:19:SUNNY Riggins) Med Hx Kidney Disease/UTI: No (10/04/2016 12:19:SUNNY Riggins) Med Hx Neurologic/Epilepsy: No (10/04/2016 12:19:SUNNY Riggins) Med Hx Psychiatric Disorders: No (10/04/2016 12:19:SUNNY Riggins) Med Hx Hepatitis/Liver Disease: No (10/04/2016 12:19:SUNNY Riggins) Med Hx Varicosities/Phlebitis: No (10/04/2016 12:19:SUNNY Riggins) Med Hx Thyroid Dysfunction: No (10/04/2016 12:19:SUNNY Riggins) Med Hx Trauma/Violence: No (10/04/2016 12:19:SUNNY Riggins) Med Hx Blood Transfusion: No (10/04/2016 12:19:SUNNY Riggins) Med Hx Pulmonary (Asthma,TB): No (10/04/2016 12:19:SUNNY Riggins) Med Hx Breast: No (10/04/2016 12:19:SUNNY Riggins) Med Hx ACCOUNT LEADER Surgery: No (10/04/2016 12:19:SUNNY Riggins) Med Hx Hospitalization/Surgery: Yes (10/04/2016 12:19:SUNNY Riggins) Med Hx Anesthetic Complications: No (10/04/2016 12:19:SUNNY Riggins) Med Hx Abnormal Pap Smear: Yes (10/04/2016 12:19:SNUNY Riggins) Other Medical Diseases: No (10/04/2016 12:19:SUNNY Riggins) Med Hx Significant Family Hx: No (10/04/2016 12:19:SUNNY Riggins) Details of Med/Surg Hx: G1 possible pp depression, tonsillectomy age 3 and wisdom teeth extraction 2001, chidbirth 2004. H/o abnormal pap HPV 2009 BRCA 1 positive considering mastectomy after delivery (10/04/2016 12:19:Aysha Root RN) INFECTIOUS HISTORY Inf Hx Gonorrhea: No (10/04/2016 12:19:Hali Max, [facility]) Inf Hx Chlamydia: No (10/04/2016 12:19:Hali Max, [facility]) Inf Hx Syphilis: No (10/04/2016 12:19:Hali Max, [facility]) Inf Hx HIV/AIDS: No (10/04/2016 12:19:Hali Max, [facility]) Inf Hx Human Papilloma Virus: Yes (10/04/2016 12:19:Hali Max, [facility]) Inf Hx Pt/Partner Genital Herpes: No (10/04/2016 12:19:Hali Max, [facility]) Inf Hx Tuberculosis/Exposure: No (10/04/2016 12:19:Hali Max, [facility]) Inf Hx Hepatitis B,C: No (10/04/2016 12:19:Hali Max, [facility]) Inf Hx Rash or Viral Illness: No (10/04/2016 12:19:Hali Max, [facility]) Details of Infectious Hx: h/o HPV 2008 (10/04/2016 12:19:Hali Max, [facility]) GENETIC HISTORY Gen Hx Age >=35 at RADHAMES: No (10/04/2016 12:19:Hali Camp, [facility]) Gen Hx Thalassemia: No (10/04/2016 12:19:Hali Camp, [facility]) Gen Hx Congenital Heart Defect: No (10/04/2016 12:19:Hali Camp, [facility]) Gen Hx Neural Tube Defect: No (10/04/2016 12:19:Hali Camp, [facility]) Gen Hx Down's Syndrome: No (10/04/2016 12:19:Hali Camp, [facility]) Gen Hx Noah-Sachs: No (10/04/2016 12:19:Hali Camp, [facility]) Gen Hx Guillermo: No (10/04/2016 12:19:Hali Camp, RN) Gen Hx Familial Dysautonomia: No (10/04/2016 12:19:Hali Camp, [facility]) Gen Hx Sickle Cell Disease/Trait: No (10/04/2016 12:19:Hali Camp, [facility]) Gen Hx Hemophilia/Blood Disorder: No (10/04/2016 12:19:Hali Camp, [facility]) Gen Hx Muscular Dystrophy: No (10/04/2016 12:19:Hali Camp, [facility]) Gen Hx Cystic Fibrosis: No (10/04/2016 12:19:Hali Camp, [facility]) Gen Hx Huntingtons Chorea: No (10/04/2016 12:19:Hali Camp, [facility]) Gen Hx Mental Retardation/Autism: No (10/04/2016 12:19:Hali Camp, [facility]) Gen Hx Tested for Fragile X: No (10/04/2016 12:19:Hali Camp, [facility]) Gen Hx Other Inher/Chromosomal: No (10/04/2016 12:19:Hali Camp, [facility]) Gen Hx Maternal Metabolic DO: No (10/04/2016 12:19:Hali Camp, [facility]) Gen Hx Pt Father or FOB Defect: No (10/04/2016 12:19:SNUNY Riggins) Gen Hx Other Genetic History: No (10/04/2016 12:19:SUNNY Riggins) Gen Hx Drugs/Meds since LMP: No (10/04/2016 12:19:SUNNY Riggins)
--- NOTE | 2016-10-21 18:00 | L&D Current Admission ---
Current Admit Datetime Report Generated by CPN: 10/21/2016 18:00 ADMISSION INFORMATION Current Admit Date/Time: 10/19/2016 17:15 (10/19/2016 19:14:Aysha Root RN) Reason for Admission: Induction of Labor (10/19/2016 19:14:Aysha Root RN) Chief Complaint: Scheduled Induction of Labor (10/19/2016 17:40:Aysha Root RN) Medications During : Vitamin (10/19/2016 19:14:Aysha Root RN) EGA per Dates: 39.4 (10/19/2016 19:14:QS system process) Method of Arrival: Ambulatory (10/19/2016 19:14:Aysha Root RN) Admitted From: Home (10/19/2016 19:14:Aysha Root RN) Reason for Induction: Oligohydramnios (10/19/2016 19:14:Aysha Root RN) Records Available: Yes (10/19/2016 19:14:Aysha Root RN) General Admission Information: Reviewed (10/19/2016 19:14:Starla Arreola RN) BELONGINGS/ADVANCED DIRECTIVES Other Belongings: see signed belongings consent (10/19/2016 19:14:Aysha Root RN) Disposition of Belongings: Kept with Patient (10/19/2016 19:14:Aysha Root RN) Advance Direct for Healthcare: No, and Wants No Information (10/19/2016 19:14:Aysha Root RN) Durable Power of Durability Engineer: No (10/19/2016 19:14:Aysha Root RN) Living Will: No (10/19/2016 19:14:Aysha Root RN) Organ Donor: Yes (10/19/2016 19:14:Aysha Root RN) Pt Rights Information Given: Yes (10/19/2016 19:14:Aysha Root RN) Pt Understands Pt Rights: Yes (10/19/2016 19:14:Aysha Root RN) LEARNING ASSESSMENT Knowledge Level: Understands L_D Process; Understands Care Activities; Understands Diagnosis (10/19/2016 19:14:Starla Arreola RN) Barriers to Learning: None (10/19/2016 19:14:Starla Arreola RN) Learning Readiness: Motivated (10/19/2016 19:14:Starla Arreola RN) Learns Best By: 1 to 1 Instruction; Reading; Videos; Demonstration (10/19/2016 19:14:Starla Arreola RN) Learning Needs: Labor and Delivery Process; Pain Management; Symptoms to Report; Treatment Plan; Medication; Diagnosis; Nutrition; Equipment; Care; Community Resources (10/19/2016 19:14:Starla Arreola RN) DOMESTIC VIOLANCE SCREENING Dom Viol Threatened/Hurt: No (10/19/2016 19:14:Aysha Root RN) Hx of Abuse/Neglect past 2yrs: No (10/19/2016 19:14:Aysha Root RN) Feel Unsafe Going Home: No (10/19/2016 19:14:Aysha Root RN) Addt'l Observ Indicating Abuse: No (10/19/2016 19:14:Aysha Root RN) Reason Unable to Complete Screen: N/A, Screen Completed (10/19/2016 19:14:Aysha Root RN) Considered Personal Harm/Suicide: No (10/19/2016 19:14:Aysha Root RN) NUTRITIONAL/FUNCTIONAL SCREENING Problem with Appetite >5 Days: No (10/19/2016 19:14:Aysha Root RN) Chew/Swallow Difficulties: No (10/19/2016 19:14:Aysha Root RN) Inappropriate Wt Gain/Loss: No (10/19/2016 19:14:Aysha Root RN) Presence Skin Breakdown/Ulcer: No (10/19/2016 19:14:Aysha Root RN) Special Diet: No (10/19/2016 19:14:Aysha Root RN) Pt Requests Flour Broker Visit: No (10/19/2016 19:14:Aysha Root RN) Hx of Any of the Following?: N/A (10/19/2016 19:14:Aysha Root RN) New Diagnosis of: N/A (10/19/2016 19:14:Aysha Root RN) Requires Assist w/Ambulation: No (10/19/2016 19:14:Aysha Root RN) Uses Assist Device to Ambulate: No (10/19/2016 19:14:Aysha Root RN) Pt Requires Help w/ADL's: No (10/19/2016 19:14:Aysha Root RN)
[2016-10-22] MEDS: IBUPROFEN 800 MG TABLET PO SCH (05:53)
--- NOTE | 2016-10-22 06:00 | L&D Current Admission ---
Current Admit Datetime Report Generated by CPN: 10/22/2016 06:00 ADMISSION INFORMATION Current Admit Date/Time: 10/19/2016 17:15 (10/19/2016 19:14:Aysha Root RN) Reason for Admission: Induction of Labor (10/19/2016 19:14:Asyha Root RN) Chief Complaint: Scheduled Induction of Labor (10/19/2016 17:40:Aysha Root RN) Medications During : Vitamin (10/19/2016 19:14:Aysha Root RN) EGA per Dates: 39.4 (10/19/2016 19:14:QS system process) Method of Arrival: Ambulatory (10/19/2016 19:14:Aysha Root RN) Admitted From: Home (10/19/2016 19:14:Aysha Root RN) Reason for Induction: Oligohydramnios (10/19/2016 19:14:Aysha Root RN) Records Available: Yes (10/19/2016 19:14:Aysha oRot RN) General Admission Information: Reviewed (10/19/2016 19:14:Starla Arreola RN) BELONGINGS/ADVANCED DIRECTIVES Other Belongings: see signed belongings consent (10/19/2016 19:14:Aysha Root RN) Disposition of Belongings: Kept with Patient (10/19/2016 19:14:Aysha Root RN) Advance Direct for Healthcare: No, and Wants No Information (10/19/2016 19:14:Aysha Root RN) Durable Power of Windlace Machine Operator: No (10/19/2016 19:14:Aysha Root RN) Living Will: No (10/19/2016 19:14:Aysha Root RN) Organ Donor: Yes (10/19/2016 19:14:Aysha Root RN) Pt Rights Information Given: Yes (10/19/2016 19:14:Aysha Root RN) Pt Understands Pt Rights: Yes (10/19/2016 19:14:Aysha Root RN) LEARNING ASSESSMENT Knowledge Level: Understands L_D Process; Understands Care Activities; Understands Diagnosis (10/19/2016 19:14:Starla Arreola RN) Barriers to Learning: None (10/19/2016 19:14:Starla Arreola RN) Learning Readiness: Motivated (10/19/2016 19:14:Starla Arreola RN) Learns Best By: 1 to 1 Instruction; Reading; Videos; Demonstration (10/19/2016 19:14:Starla Arreola RN) Learning Needs: Labor and Delivery Process; Pain Management; Symptoms to Report; Treatment Plan; Medication; Diagnosis; Nutrition; Equipment; Care; Community Resources (10/19/2016 19:14:Staral Arreola RN) DOMESTIC VIOLANCE SCREENING Dom Viol Threatened/Hurt: No (10/19/2016 19:14:Aysha Root RN) Hx of Abuse/Neglect past 2yrs: No (10/19/2016 19:14:Aysha Root RN) Feel Unsafe Going Home: No (10/19/2016 19:14:Aysha Root RN) Addt'l Observ Indicating Abuse: No (10/19/2016 19:14:Aysha Root RN) Reason Unable to Complete Screen: N/A, Screen Completed (10/19/2016 19:14:Aysha Root RN) Considered Personal Harm/Suicide: No (10/19/2016 19:14:Aysha Root RN) NUTRITIONAL/FUNCTIONAL SCREENING Problem with Appetite >5 Days: No (10/19/2016 19:14:Aysha Root RN) Chew/Swallow Difficulties: No (10/19/2016 19:14:Aysha Root RN) Inappropriate Wt Gain/Loss: No (10/19/2016 19:14:Aysha Root RN) Presence Skin Breakdown/Ulcer: No (10/19/2016 19:14:Aysha Root RN) Special Diet: No (10/19/2016 19:14:Aysha Root RN) Pt Requests Esl Instructional Assistant Visit: No (10/19/2016 19:14:Aysha Root RN) Hx of Any of the Following?: N/A (10/19/2016 19:14:Aysha Root RN) New Diagnosis of: N/A (10/19/2016 19:14:Aysha Root RN) Requires Assist w/Ambulation: No (10/19/2016 19:14:Aysha Root RN) Uses Assist Device to Ambulate: No (10/19/2016 19:14:Aysha Root RN) Pt Requires Help w/ADL's: No (10/19/2016 19:14:Aysha Root RN)
--- NOTE | 2016-10-22 06:00 | L&D General Admission ---
General Admit Datetime Report Generated by CPN: 10/22/2016 06:00 INFORMATION Patient Age: 31 (10/04/2016 11:18:QS system process) EDC: 10/22/2016 00:00 (10/04/2016 12:19:SUNNY Higgins) : 2 (10/04/2016 12:19:SUNNY Higgins) Para: 1 (10/17/2016 12:07:Lucy Yi RN) Term: 1 (10/04/2016 12:19:SUNNY Higgins) : 0 (10/04/2016 12:19:SUNNY Higgins) Spontaneous Abortions: 0 (10/04/2016 12:19:SUNNY Higgins) Induced Abortions: 0 (10/04/2016 12:19:SUNNY Higgins) Livin (10/04/2016 12:19:SUNNY Higgins) Cesareans: 0 (10/04/2016 12:19:SUNNY Riggins) VBACs: 0 (10/04/2016 12:19:SUNNY Riggins) Ectopic: 0 (10/04/2016 12:19:SUNNY Riggins) Multiple Births: 0 (10/04/2016 12:19:SUNNY Riggins) Baby, Number in Womb: 1 (10/17/2016 12:07:Lucy Yi RN) CARE [facility] (10/04/2016 12:19:SUNNY Riggins) Month of 1st Visit: February (10/04/2016 12:19:SUNNY Riggins) Adequate Care: Yes (10/04/2016 12:19:SUNNY Riggins) Prepregnancy Weight (lb): 237 (10/04/2016 12:19:SUNNY Riggins) Prepregnancy Weight (kg): 107.7 (10/04/2016 12:19:QS system process) Height (in): 66 (10/20/2016 23:06:QS system process) ALLERGIES Medication Allergy: Yes (10/04/2016 12:19:SUNNY Higgins) Medication Allergies: tramadol (10/20/2016) (10/20/2016 05:36:QS system process) Latex Allergy: No Latex Allergies (10/04/2016 12:19:SUNNY Riggins) Food Allergies: none (10/04/2016 12:19:Starla Arreola RN) Environmental Allergies: none (10/04/2016 12:19:Starla Arreola RN) COMMUNICATION Primary Language: Malagasy (10/04/2016 12:19:SUNNY Riggins) Medical Tx Preferred Language: Malagasy (10/04/2016 12:19:SUNNY Riggins) Communication Barrier(s): None (10/04/2016 12:19:SUNNY Riggins) DEMOGRAPHICS Address: [address] [place] [id number] (10/04/2016 11:18:QS system process) Zipcode: [address] (10/04/2016 11:18:QS system process) Home (10/04/2016 11:18:QS system process) SSN: [id number] (10/04/2016 11:18:QS system process) Next of Kin Name: ESTELLA PALMA (10/04/2016 11:18:QS system process) Next of Kin (10/04/2016 11:18:QS system process) Next of Kin Relationship: OR (10/04/2016 11:18:QS system process) Date of : 1985 (10/04/2016 11:18:QS system process) Marital Status: (10/04/2016 11:18:QS system process) Sex: Female (10/04/2016 11:18:QS system process) Occupation: Homemaker (10/04/2016 12:19:SUNNY Riggins) Race: (10/04/2016 11:18:QS system process) Ethnicity: Non- or (10/04/2016 11:18:QS system process) Latter-Day: None (10/04/2016 11:18:QS system process) Education: 12 (10/04/2016 12:19:SUNNY Riggins) FOB Involved: Yes (10/04/2016 12:19:SUNNY Riggins) Father of Baby Name: Roel Bolaños (10/04/2016 12:19:SUNNY Riggins) DRUG AND ALCOHOL USE Alcohol: No (10/04/2016 12:19:SUNNY Riggins) Cigarettes: Current Everyday Smoker. [id number] (10/04/2016 12:19:SUNNY Riggins) Average Cigarettes Smoked: > 10 per day (10/04/2016 12:19:SUNNY Riggins) Advised to Stop Smoking: Yes (10/04/2016 12:19:Hali Camp, RN) Marijuana: No (10/04/2016 12:19:Hali Camp, [facility]) Cocaine: No (10/04/2016 12:19:Hali Camp, [facility]) Other Illicit Drugs: No (10/04/2016 12:19:Hali Camp, [facility]) VACCINE HISTORY Influenza Vaccine: Yes (10/04/2016 12:19:Hali Camp, [facility]) Influenza Date: 08/29/2016 (10/04/2016 12:19:Hali Camp, [facility]) Pneumococcal Vaccine: No (10/04/2016 12:19:Hali Camp, [facility]) Tetanus Vaccine: Yes (10/04/2016 12:19:Hali Camp, [facility]) Tetanus Date: 08/29/2016 (10/04/2016 12:19:Hali Camp, [facility]) Tdap Vaccine: Yes (10/04/2016 12:19:Hali Camp, [facility]) Tdap Date: 08/29/2016 (10/04/2016 12:19:Hali Camp, [facility]) Hepatitis B Vaccine: Yes (10/04/2016 12:19:Hali Camp, [facility]) Hepatitis B Vaccine Date : 2001 (10/04/2016 12:19:Hali Camp, [facility]) Stock Grader: [facility] (10/04/2016 12:19:SUNNY Riggins) Feeding Preference: Breast (10/04/2016 12:19:SUNNY Riggins) Benefit of Breast Feed Discussed: Yes (10/04/2016 12:19:SUNNY Riggins) Circumcision: N/A (10/04/2016 12:19:SUNNY Riggins) Classes Attended: Unknown (10/04/2016 12:19:SUNNY Riggins) Tubal Ligation: No (10/04/2016 12:19:SUNNY Riggins) Tubal Authorization Signed: No (10/04/2016 12:19:SUNNY Riggins) Consent: N/A (10/04/2016 12:19:SUNNY Riggins) Consent Signed: No (10/04/2016 12:19:SUNNY Riggins) Pain Management Plans: Epidural (10/04/2016 12:19:SUNNY Riggins) Plans for Labor and Delivery: None (10/04/2016 12:19:SUNNY Riggins) Support Person: Estella Palma (10/04/2016 12:19:SUNNY Riggins) Support Person Relationship: Other (10/04/2016 12:19:SUNNY Riggins) Other Relationship: grandmother (10/04/2016 12:19:SUNNY Riggins) Cultural/Spritual Practice: No (10/04/2016 12:19:SUNNY Riggins) Spir/Cult Dietary Needs: No (10/04/2016 12:19:SUNNY Riggins) LIVING SITUATION/DISCHARGE PLAN Living Arrangements: House (10/04/2016 12:19:SUNNY Riggins) Adequate Access to:: Electric; Heat; Refrigeration; Plumbing/Running water; Phone; Transportation (10/04/2016 12:19:SUNNY Riggins) WIC Program: Needs referral (10/04/2016 12:19:SUNNY Riggins) Discharge Welder Production Line Arc Person: Estella Palma (10/04/2016 12:19:SUNNY Riggins) Person to Help after Discharge: Avis Nuñez (10/04/2016 12:19:SUNNY Riggins) Currently Using Commun Resources: No (10/04/2016 12:19:SUNNY Riggins) Outside Agency/Assortment Planner: No (10/04/2016 12:19:SUNNY Riggins) Car Seat for Discharge: Yes (10/04/2016 12:19:SUNNY Riggins) Adoption Requested: No (10/04/2016 12:19:SUNNY Riggins) Pt Contact w/infant Post : N/A (10/04/2016 12:19:SUNNY Riggins) LABS Blood Type: O Positive (10/04/2016 12:19:Aysha Root RN) Antibody Screen: negative (10/04/2016 12:19:Starla Arreola RN) Hemoglobin: 10.1 L (10/21/2016 09:13:QS system process) Hematocrit: 30.2 L (10/21/2016 09:13:QS system process) MCV: 78 L (10/21/2016 09:13:QS system process) Group Beta Strep: Negative (10/19/2016 21:32:Starla Arreola RN) Gonorrhea: Negative (10/04/2016 12:19:Aysha Root RN) Chlamydia: Negative (10/04/2016 12:19:Aysha Root RN) RPR/VDRL: Nonreactive (10/04/2016 12:19:Starla Arreola RN) HIV Exposure Test: Negative (10/04/2016 12:19:Aysha Root RN) Hepatitis B: Negative (10/04/2016 12:19:Starla Arreola RN) Rubella: Immune (10/04/2016 12:19:Starla Arreola RN) Varicella: Susceptible (10/04/2016 12:19:Starla Arreola RN) OB/PREVIOUS HISTORY Previous Procedures: Ultrasound; NST (10/04/2016 12:19:SUNNY Riggins) Current Procedures: Ultrasound; NST (10/04/2016 12:19:SUNNY Riggins) History of Previous : No (10/04/2016 12:19:SUNNY Riggins) History of Gestational Diabetes: No (10/04/2016 12:19:SUNNY Riggins) History of PIH: No (10/04/2016 12:19:SUNNY Riggins) History of Incompetent Cervix: No (10/04/2016 12:19:Hali Max [facility]) History of Placenta Previa/Abrup: No (10/04/2016 12:19:Hali Max [facility]) History of Macrosomia: No (10/04/2016 12:19:Hali Max [facility]) History of IUGR: No (10/04/2016 12:19:Hali Max [facility]) History of Hemorrhage: No (10/04/2016 12:19:Hali Max [facility]) History of Loss/Stillborn: No (10/04/2016 12:19:Hali Max [facility]) History of : No (10/04/2016 12:19:Hali Max [facility]) History of D (Rh) Sensitization: No (10/04/2016 12:19:Hali Max [facility]) History Recurrent Loss/Stillborn: No (10/04/2016 12:19:Hali Max [facility]) History Depression/PP Depression: Yes (10/04/2016 12:19:Hali Max [facility]) History of Uterine Anomaly/PEBBLES: No (10/04/2016 12:19:Hali Max [facility]) History of Infertility: No (10/04/2016 12:19:Hali Max [facility]) History of ART Treatment: No (10/04/2016 12:19:Hali Max [facility]) History of PEBBLES: No (10/04/2016 12:19:Hali Max [facility]) Comments Obstetrical History: G-1 at 40.2 weeks (2004) possible pp depression no dx or treatment G2: Current, GDM and oligo (10/04/2016 12:19:Lexy Alvarado RN) MEDICAL HISTORY Med Hx Diabetes: No (10/04/2016 12:19:SUNNY Riggins) Diabetes Type: Gestational Diabetes (10/04/2016 12:19:SUNNY Riggins) Med Hx Hypertension: No (10/04/2016 12:19:SUNNY Riggins) Med Hx Heart Disease: No (10/04/2016 12:19:SUNNY Riggins) Med Hx Autoimmune Disorder: No (10/04/2016 12:19:SUNNY Riggins) Med Hx Kidney Disease/UTI: No (10/04/2016 12:19:SUNNY Riggins) Med Hx Neurologic/Epilepsy: No (10/04/2016 12:19:SUNNY Riggins) Med Hx Psychiatric Disorders: No (10/04/2016 12:19:SUNNY Riggins) Med Hx Hepatitis/Liver Disease: No (10/04/2016 12:19:SUNNY Riggins) Med Hx Varicosities/Phlebitis: No (10/04/2016 12:19:SUNNY Riggins) Med Hx Thyroid Dysfunction: No (10/04/2016 12:19:SUNNY Riggins) Med Hx Trauma/Violence: No (10/04/2016 12:19:SUNNY Riggins) Med Hx Blood Transfusion: No (10/04/2016 12:19:SUNNY Riggins) Med Hx Pulmonary (Asthma,TB): No (10/04/2016 12:19:SUNNY Riggins) Med Hx Breast: No (10/04/2016 12:19:SUNNY Riggins) Med Hx RESORT DESK CLERK Surgery: No (10/04/2016 12:19:SUNNY Riggins) Med Hx Hospitalization/Surgery: Yes (10/04/2016 12:19:SUNNY Riggins) Med Hx Anesthetic Complications: No (10/04/2016 12:19:SUNNY Riggins) Med Hx Abnormal Pap Smear: Yes (10/04/2016 12:19:SUNNY Riggins) Other Medical Diseases: No (10/04/2016 12:19:SUNNY Riggins) Med Hx Significant Family Hx: No (10/04/2016 12:19:SUNNY Riggins) Details of Med/Surg Hx: G1 possible pp depression, tonsillectomy age 3 and wisdom teeth extraction 2001, chidbirth 2004. H/o abnormal pap HPV 2009 BRCA 1 positive considering mastectomy after delivery (10/04/2016 12:19:Aysha Root RN) INFECTIOUS HISTORY Inf Hx Gonorrhea: No (10/04/2016 12:19:Hali Max, [facility]) Inf Hx Chlamydia: No (10/04/2016 12:19:Hali Max, [facility]) Inf Hx Syphilis: No (10/04/2016 12:19:Hali Max, [facility]) Inf Hx HIV/AIDS: No (10/04/2016 12:19:Hali Max, [facility]) Inf Hx Human Papilloma Virus: Yes (10/04/2016 12:19:Hali Max, [facility]) Inf Hx Pt/Partner Genital Herpes: No (10/04/2016 12:19:Hali Max, [facility]) Inf Hx Tuberculosis/Exposure: No (10/04/2016 12:19:Hali Max, [facility]) Inf Hx Hepatitis B,C: No (10/04/2016 12:19:Hali Max, [facility]) Inf Hx Rash or Viral Illness: No (10/04/2016 12:19:Hali Max, [facility]) Details of Infectious Hx: h/o HPV 2008 (10/04/2016 12:19:Hali Max, [facility]) GENETIC HISTORY Gen Hx Age >=35 at RADHAMES: No (10/04/2016 12:19:Hali Camp, RNC) Gen Hx Thalassemia: No (10/04/2016 12:19:Hali Camp, RNC) Gen Hx Congenital Heart Defect: No (10/04/2016 12:19:Hali Camp, RNC) Gen Hx Neural Tube Defect: No (10/04/2016 12:19:Hali Camp, RNC) Gen Hx Down's Syndrome: No (10/04/2016 12:19:Hali Camp, RNC) Gen Hx Noah-Sachs: No (10/04/2016 12:19:Hali Camp, [facility]) Gen Hx Guillermo: No (10/04/2016 12:19:Hali Camp, RN) Gen Hx Familial Dysautonomia: No (10/04/2016 12:19:Hali Camp, RNC) Gen Hx Sickle Cell Disease/Trait: No (10/04/2016 12:19:Hali Camp, RNC) Gen Hx Hemophilia/Blood Disorder: No (10/04/2016 12:19:Hali Camp, RNC) Gen Hx Muscular Dystrophy: No (10/04/2016 12:19:Hali Camp, [facility]) Gen Hx Cystic Fibrosis: No (10/04/2016 12:19:Hali Camp, RNC) Gen Hx Huntingtons Chorea: No (10/04/2016 12:19:Hali Camp, RNC) Gen Hx Mental Retardation/Autism: No (10/04/2016 12:19:Hali Camp, RNC) Gen Hx Tested for Fragile X: No (10/04/2016 12:19:Hali Camp, RNC) Gen Hx Other Inher/Chromosomal: No (10/04/2016 12:19:Hali Camp, RNC) Gen Hx Maternal Metabolic DO: No (10/04/2016 12:19:Hali Camp, RNC) Gen Hx Pt Father or FOB Defect: No (10/04/2016 12:19:SUNNY Riggins) Gen Hx Other Genetic History: No (10/04/2016 12:19:SUNNY Riggins) Gen Hx Drugs/Meds since LMP: No (10/04/2016 12:19:SUNNY Riggins)
[2016-10-22 06:14] LABS: HEMATOCRIT 29.1 % (36.0-47.0); HEMOGLOBIN 9.8 g/dL (12.0-15.5); HGB HCT DIFFERENCE 0.3; MEAN CORPUSCULAR HGB CONC 33.6 g/dL (32.0-36.0); MEAN CORPUSCULAR VOLUME 78 fl (80-97); RED BLOOD COUNT 3.75 10^6/uL (3.72-5.28); RED CELL DISTRIBUTION WIDTH 16.3 % (11.5-14.0); WHITE BLOOD COUNT 7.1 10^3/uL (4.0-10.5)
--- NOTE | 2016-10-22 06:15 | L&D Care Plan ---
LD CARE PLANS Datetime Report Generated by CPN: 10/22/2016 06:15 Datetime: 10/19/2016 19:36 State: Risk For (Aysha Root RN) Related To: Labor and Delivery Process; Treatment and Procedures (Aysha Root RN) Goal(s): Patients Pain will be Assessed and Managed; Patient will Verbalize Adequate Relief of Pain or the Ability to [place] with Current Pain (Aysha Root RN) Interventions: Assess Pain Severity on Scale of 0 (None) to 5 (Severe); Assess Type, Location and Intensity of Pain Each Time Client Reports Discomfort and Notify Provider if Unusal Pain Develops; Encourage Proper Breathing and Relaxation Techniques; Offer Alternatives Such as Repositioning, Calm Environment, Massages, Diversional Activities, Ice Pack, Splinting, and Ambulation (Aysha Root RN) Outcome: Patient will Report Absence or Relief of Pain Consistent with Established Pain Goal (Aysha Root RN) Status: Ongoing (Aysha Root RN) Outcome: Patient will have a Decrease in Signs and Symptoms of Discomfort (Aysha Root RN) Status: Ongoing (Aysha Root RN) State: Risk For (Nicole Devine RN) Related To: Labor and Delivery Process; Fear of Unknown; Medical Interventions (Nicole Devine RN) Goal(s): Patient will have Decreased Anxiety and be able to Function at Acceptable Levels (Nicole Devine RN) Interventions: Assess Verbal and Nonverbal Behavioral Indicators of Anxiety; Assist Patient to Identify and Verbalize Symptoms of Anxiety; Identify and Demonstrate Techniques to Control Anxiety; Assist Patient with Coping Mechanisms to Manage Anxiety; Provide Theraputic Touch for the Patient; Explain to Patient, Using a Calm Reassuring Approach and Nonmedical Terms, All Activities, Procedures, and Concerns; Instruct Patient and Family about Post Discharge Care, Limitations, Symptoms to Report and Resources Available (Nicole Devine RN) Outcome: Patient will Identify, Verbalize and Demonstrate Techniques to Control Anxiety (Nicole Devine RN) Status: Ongoing (Nicole Devine RN) Outcome: Patient's Posture, Facial Expressions, Gestures and Activity Level will Reflect Decreased Anxiety (Nicole Devine RN) Status: Ongoing (Nicole Devine RN) Outcome: Patient will Verbalize a Sense of Control and/or Acceptance of the Situation (Nicole Devine RN) Status: Ongoing (Nicole Devine RN) Outcome: Patient will Identify and Utilize Support Person (Nicole Devine RN) Status: Ongoing (Nicole Devine RN) State: Risk For (Nicole Devine RN) Related To: Labor and Delivery Process; Treatment and Procedures; Feeding and Infant Care (Nicole Devine RN) Goal(s): Patient will Accurately Verbalize Understanding of Plan of Care and Treatment; Patient and Family will Accurately Verbalize Understanding of the Disease Process (Nicole Devine RN) Interventions: Assess Motivation and Willingness of Patient/Family to Learn; Assess Preferred Learning Mode: One to One Instruction, Reading, Videos, Group Discussion or Demonstration; Assess Barriers to Learning: Pain, Emotional State, Language Barrier, Cognitive Impairment, Visual or Hearing Deficits; Assess Patient and Family Knowledge of Disease Process, Medications and Treatment; Discuss Therapy and/or Treatment Options, Describe Rationale Behind Management, Therapy and Treatment Recommendations; Instruct Patient and Family on Signs and Symptoms to Report; Instruct Patient and Family on Medication Effects and Side Effects; Provide Appropriate and Timely Education Using Multiple Techniques; Provide Patient and Family with Support Group Information and Resources; Give Clear and Thorough Explanations and Demonstrations (Nicole Devine RN) Outcome: Patient and Family will Verbalize Understanding of Condition, Treatment and Signs and Symptoms to Report (Nicole Devine RN) Status: Ongoing (Nicole Devine RN) Outcome: Patient will Identify Perceived Learning Needs and Express Motivation to Learn (Nicole Devine RN) Status: Ongoing (Nicole Devine RN) Outcome: Patient will Verbalize Understanding of Desired Content, and/or Performs Desired Skill Prior to Discharge (Nicole Devine RN) Status: Ongoing (Nicole Devine RN) State: Risk For (Aysha Root RN) Related To: Prolonged Labor or Induction; Invasive Procedures; Altered Tissue Integrity (Aysha Root RN) Goal(s): The Patient will be Free of Infection, Vital Signs Stable and Lab Work within Normal Parameters (Aysha Root RN) Interventions: Instruct and Reinforce Proper Handwashing, Hygiene, and Care Techniques to Patient and Family; Monitor Vital Signs; Monitor Patient for the Following Signs of Infection: Fever, Abdominal Tenderness, Unusual Discharge; Monitor Aminiotic Fluid, Urine and Lochia for Color and Odor; Observe Wounds, Incisions and Invasive Line Sites for Redness, Drainage and Edema (Aysha Root RN) Outcome: Patient will Remain Free of Infection (Aysha Root RN) Status: Ongoing (Aysha Root RN) Outcome: Infection will be Recognized Early to Allow for Prompt Treatment (Aysha Root RN) Status: Ongoing (Aysha Root RN) Outcome: Patient will have Vital Signs Within Expected Range (Nicole Devine RN) Status: Ongoing (Nicole Devine RN) State: Risk For (Nicole Devine RN) Related To: Prolonged Labor or Induction; Hemorrhage; Anesthesia (Nicole Devine RN) Goal(s): Patient will Achieve and Maintain a Balanced Fluid Volume Status; Hemodynamically Stable (Nicole Devine RN) Interventions: Monitor Vital Signs; Auscultate Breath Sounds; Monitor Patient for Skin Turgor, Mucous Membranes, Dry Skin, Weakness, Headaches and Confusion; Provide Oral Fluids as Ordered; Initiate and Maintain Intravenous Fluids as Ordered; Monitor Intake and Output as Indicated Per Patient Status; Accurately Measure Blood Loss; Monitor Lab and Test Results as Obtained and Notify Provider of Abnormal Findings; Monitor Patient's Weight (Nicole Devine RN) Outcome: Patient will have Clear Lung Sounds (Nicole Devine RN) Status: Ongoing (Nicole Devine RN) Outcome: Patient will have Vital Signs within Expected Range (Nicole Devine RN) Status: Ongoing (Nicole Devine RN) Outcome: Urine Output will be within Expected Range (Nicole Devine RN) Status: Ongoing (Nicole Devine RN) Outcome: Patient will have Minimal Generalized or Upper Extremity Edema (Nicole Devine RN) Status: Ongoing (Nicole Devine RN) State: Risk For (Nicole Devine RN) Related To: Labor and Delivery Process; Anesthesia; Risk to Status; Uteroplacental Perfusion; Hemorrhage, Placenta Previa and or Placental Abruption (Nicole Devine RN) Goal(s): Patient will Remain Free from Injury (Nicole Devine RN) Interventions: Monitoring as per Hospital Protocol; Assess Neurological Status; Perform Risk Assessment of Patients with Induction and ; Perform Fall Risk Assessment and Prevention per Hospital Protocol; Perform DVT Risk Assessment and Prophylaxis per Hospital Protocol; Ensure that Oxygen, Suction, and Resuscitation Medications and Equipment are Readily Available; Confirm Patient ID Prior to Procedure(s) and Medication Administration per Hospital Policy (Nicole Devine RN) Outcome: Successful Fall Risk Prevention (Nicole Devine RN) Status: Ongoing (Nicole Devine RN) Outcome: Patient will Deliver without Adverse [place] (Nicole Devine RN) Status: Ongoing (Nicole Devine RN) Outcome: Patient's Neurological Status will Remain Stable (Nicole Devine RN) Status: Ongoing (Nicole Devine RN) State: Risk For (Aysha Root RN) Related To: Vaginal Delivery; Invasive Procedures (Nicole Devine RN) Goal(s): Patient will Maintain Optimal Skin Integrity, Free of Breakdown, Injury or Infection (Aysha Root RN) Interventions: Complete Screening for Pressure Ulcer Risk and Initiate Protocol per Hospital Policy; Monitor Site of Skin Impairment for Color Changes, Redness, Swelling, Warmth, Pain or Other Signs of Infection; Encourage and Assist with Position Changes; Monitor Patient's Mobility Status; Provide Adequate Nutrition and Fluids; Teach Patient Appropriate Hygienic Care; Teach Patient/Family Skin Care Management (Nicole Devine RN) Outcome: Patient will not have Evidence of Injury Such as Skin Breakdown, Scrapes, Cuts, or Bruising (Aysha Root RN) Status: Ongoing (Aysha Root RN) Outcome: Patient will Report Any Altered Sensation or Pain at Site of Skin Impairment (Aysha Root RN) Status: Ongoing (Aysha Root RN) Outcome: Patients Incisions and Wounds will be without Signs or Symptoms of Infection (Aysha Root RN) Status: Ongoing (Aysha Root RN) Outcome: Patient will Demonstrate Understanding of Plan to Heal Skin and Prevent Reinjury and Verbalize Risk Factors (Nicole Devine RN) Status: Ongoing (Nicole Devine RN) State: Not Applicable (Aysha Root RN) State: Risk For (Nicole Devine RN) Related To: ; (Nicole Devine RN) Goal(s): Patient will have an Intake of Nutrients Sufficient to Meet Metabolic Needs (Nicole Devine RN) Interventions: Nutritional Screening and Assessment per Hospital Policy; Consult Houseman for Further Assessment and Recommendations Regarding Food Preferences and Nutritional Support; Allow Patient to Plan and Order Diet when Possible; Monitor Laboratory Values That Indicate Nutritional Well-being; Consult Mechanical Systems Control Engineer for Nutritional Support Regarding Requirements; Document Actual Weight Initially and Weekly (Do Not Estimate); Encourage Patient Participation in Maintaining a Food Log as Indicated; Educate Patient on the Importance of Maintaining an Adequate Caloric Intake (Nicole Devine RN) Outcome: Patient will Receive Adequate Calories and Fluid Volume to Meet Metabolic Needs (Nicole Devine RN) Status: Ongoing (Nicole Devine RN) Outcome: Patient will Select Foods or Meals that Support Adequate Nutrition (Nicole Devine RN) Status: Ongoing (Nicole Devine RN) State: Not Applicable (Aysha Root RN) Datetime: 10/19/2016 19:35 State: Risk For (Aysha Root RN) Related To: Labor and Delivery Process; Treatment and Procedures (Aysha Root RN) Goal(s): Patients Pain will be Assessed and Managed; Patient will Verbalize Adequate Relief of Pain or the Ability to [place] with Current Pain (Aysha Root RN) Interventions: Assess Pain Severity on Scale of 0 (None) to 5 (Severe); Assess Type, Location and Intensity of Pain Each Time Client Reports Discomfort and Notify Provider if Unusal Pain Develops; Encourage Proper Breathing and Relaxation Techniques; Offer Alternatives Such as Repositioning, Calm Environment, Massages, Diversional Activities, Ice Pack, Splinting, and Ambulation (Aysha Root RN) Outcome: Patient will Report Absence or Relief of Pain Consistent with Established Pain Goal (Aysha Root RN) Status: Ongoing (Aysha Root RN) Outcome: Patient will have a Decrease in Signs and Symptoms of Discomfort (Aysha Root RN) Status: Ongoing (Aysha Root RN) State: Not Applicable (Aysha Root RN) State: Not Applicable (Aysha Root RN) State: Risk For (Aysha Root RN) Related To: Prolonged Labor or Induction; Invasive Procedures; Altered Tissue Integrity (Aysha Root RN) Goal(s): The Patient will be Free of Infection, Vital Signs Stable and Lab Work within Normal Parameters (Aysha Root RN) Interventions: Instruct and Reinforce Proper Handwashing, Hygiene, and Care Techniques to Patient and Family; Monitor Vital Signs; Monitor Patient for the Following Signs of Infection: Fever, Abdominal Tenderness, Unusual Discharge; Monitor Aminiotic Fluid, Urine and Lochia for Color and Odor; Observe Wounds, Incisions and Invasive Line Sites for Redness, Drainage and Edema (Aysha Root RN) Outcome: Patient will Remain Free of Infection (Aysha Root RN) Status: Ongoing (Aysha Root RN) Outcome: Infection will be Recognized Early to Allow for Prompt Treatment (Aysha Root RN) Status: Ongoing (Aysha Root RN) State: Not Applicable (Aysha Root RN) State: Not Applicable (Aysha Root RN) State: Risk For (Aysha Root RN) Related To: Vaginal Delivery (Aysha Root RN) Goal(s): Patient will Maintain Optimal Skin Integrity, Free of Breakdown, Injury or Infection (Aysha Root RN) Interventions: Complete Screening for Pressure Ulcer Risk and Initiate Protocol per Hospital Policy; Monitor Site of Skin Impairment for Color Changes, Redness, Swelling, Warmth, Pain or Other Signs of Infection; Monitor Patient's Mobility Status (Aysha Root RN) Outcome: Patient will not have Evidence of Injury Such as Skin Breakdown, Scrapes, Cuts, or Bruising (Aysha Root RN) Status: Ongoing (Aysha Root RN) Outcome: Patient will Report Any Altered Sensation or Pain at Site of Skin Impairment (Aysha Root RN) Status: Ongoing (Aysha Root RN) Outcome: Patients Incisions and Wounds will be without Signs or Symptoms of Infection (Aysha Root RN) Status: Ongoing (Aysha Root RN) State: Not Applicable (Aysha Root RN) State: Not Applicable (Aysha Root RN) State: Not Applicable (Aysha Root RN)
[2016-10-22] MEDS: DOCUSATE SODIUM 100 MG CAPSULE PO SCH (09:49)
[2016-10-22] MEDS: FERROUS SULFATE 325 MG TABLET PO SCH (09:49)
[2016-10-22] MEDS: PRENATAL VITAMIN W-O CA NO5/FE FUMARATE/FA CAPSULE PO SCH (09:50)
[2016-10-22] MEDS: SENNOSIDES/DOCUSATE 8.6-50 MG 1 EACH TABLET PO SCH (09:50)
[2016-10-22 11:53] VITALS: BP 125/71
--- NOTE | 2016-10-22 12:13 | PDOC DISCHARGE SUMMARY ---
Final Diagnosis Discharge Date: 10/22/16 - Final Diagnosis (1) Term Is this a current diagnosis for this admission?: Yes (2) Gestational diabetes Is this a current diagnosis for this admission?: Yes (3) Vaginal delivery Is this a current diagnosis for this admission?: Yes Discharge Data - Discharge Medication Home Medications: Prenat Vit Comb.10/Iron/FA/Dha [Vitafol-Ob+Dha Combo Pack] 1 tab PO DAILY Docusate Sodium [Colace 100 mg Capsule] 100 mg PO BID #60 capsule 10/22/16 Ferrous Sulfate [Feosol 325 mg Tablet] 325 mg PO BID #60 tablet 10/22/16 Ibuprofen [Motrin 800 mg Tablet] 800 mg PO Q8HP PRN #90 tablet 10/22/16 Reason(s) for Admission: Induction of Labor, Gestional Diabetes Procedures: NST, Ultrasound Intrapartum Procedure(s): Spontaneous Vaginal Delivery - [place] Data Baby 1 Female at 1 minute: 8 at 5 minutes: 9 Weight: 2818 kg Home with Mother: Yes Complications: No - Diagnosis Test Laboratory: Temp Pulse Resp BP Pulse Ox 97.4 F 87 16 138/67 H 99 10/22/16 07:25 10/22/16 07:25 10/22/16 07:25 10/22/16 07:25 10/22/16 07:25 10/19/16 10/19/16 10/21/16 17:20 17:47 09:13 RBC 3.94 3.88 Hgb 10.3 L 10.1 L Hct 30.4 L 30.2 L Urine Opiates Screen NEGATIVE 10/22/16 06:04 RBC 3.75 Hgb 9.8 L Hct 29.1 L Urine Opiates Screen - Discharge information/Instructions Discharge Activity: Activity As Tolerated, Balance Activity w/Rest, No Lifting Over 10 Pounds, No Lifting/Push/Pulling, Pelvic Rest, Slowly Increase Activity, No tub bath Discharge Diet: Regular Disposition: HOME, SELF-CARE Follow up with: [facility] in: 4, Weeks Physical Exam (OB) Vital Signs: Temp Pulse Resp BP Pulse Ox 97.4 F 87 16 138/67 H 99 10/22/16 07:25 10/22/16 07:25 10/22/16 07:25 10/22/16 07:25 10/22/16 07:25 - General General Appearance: Appears well In distress: None Note:: declines contraceptives ( [place] , will obtain from [facility] - Episiotomy/Laceration Site Condition: N/A - Lochia Lochia Amount: Scant < 10 ml Lochia Color: Rubra/Red - Abdomen Description: Soft, Round Hernia Present: No Fundal Description: Firm, Midline Fundal Height: u/u - u/2 - Respiratory Respiratory Status: No respiratory distress - Extremities Upper extremity: Normal inspection Lower extremities: Normal inspection - Neurological Cognition: Normal Orientation: AAOx4 - Psychological Associated symptoms: Normal affect, Normal mood - bonding well with baby, helpful family at bedside
--- NOTE | 2016-10-31 09:28 | Delivery Summary ---
Del Sum A-C Datetime Report Generated by CPN: 10/31/2016 09:28 ADMISSION DATA Chief Complaint: Scheduled Induction of Labor Indication for Induction: Oligohydramnios Admission Impression: Term, Intrauterine ; No Active Labor; Induction of Labor DELIVERY PERSONNEL Delivery Doctor:: David Vaz, DO Labor and Delivery Nurse:: Lexy Alvarado RNcrate opener Nurse:: Ana Mendoza RN Student Observers:: SN Nitish Light Industrial Supervisor/MACHINE SETTER AND REPAIRER: Shane Keny, CONTACT LENS MOLDER MATERNAL INFORMATION Delivery Anesthesia: Epidural Medications After Delivery: Pitocin Bolus-Please Comment Meds After Delivery Comment: Pitocin 20 units in 1000 mL NS Estimated Blood Loss (ml): 200 Maternal Complications: None; Other Provider Comments: of viable female in DOE position Loose Nuchal cord x1 easily reduced Placenat delievered spontaneous and intact with 3v cord Fundus firm LABOR SUMMARY EDC: 10/22/2016 00:00 No. Babies in Womb: 1 Attempted: No Labor Anesthesia: Epidural LABOR INFORMATION Reason for Induction: Maternal Diabetes; Oligohydramnios Onset of Labor: 10/20/2016 13:37 Complete Dilatation: 10/20/2016 18:54 Cervical Ripening Agents: Cervidil Oxytocin: Induction Group B Beta Strep: Negative Antibiotics # of Doses: 0 Steroids Given: None Reason Steroids Not Administered: Not Applicable [facility] Membranes Rupture Method: Spontaneous Amniotic Fluid Amount: None STAGES OF LABOR Stage 1 hr: 5 Stage 1 min: 17 Stage 2 hr: 0 Stage 2 min: 11 Stage 3 hr: 0 Stage 3 min: 2 Total Time in Labor hr: 5 Total Time in Labor min: 30 VAGINAL DELIVERY Episiotomy: None Laceration Extension: N/A Laceration Type: None CSECTION DELIVERY CSection Incision: N/A BABY A INFORMATION Delivery Date/Time: 10/20/2016 19:05 Method of Delivery: Vaginal Born in Route : No : N/A Forceps: N/A Vacuum Extraction: N/A Shoulder Dystocia : No PRESENTATION/POSITION BABY A Presentation: Cephalic Cephalic Presentation: Vertex Vertex Position: Right Occipital Anterior Breech Presentation: N/A PLACENTA INFORMATION BABY A Placenta Delivery Time : 10/20/2016 19:07 Placenta Method of Delivery: Spontaneous Placenta Status: Delivered SCORES BABY A Heart Rate 1 min: >100 bpm Resp Effort 1 min: Good Cry Reflex Irritability 1 min: Cough or Sneeze or Pulls Away Muscle Tone 1 min: Active Motion Color 1 min: Blue/Pale Resuscitation Effort 1 min: Tactile Stimulation SCORE 1 MIN: 8 Heart Rate 5 min: >100 bpm Resp Effort 5 min: Good Cry Reflex Irritability 5 min: Cough or Sneeze or Pulls Away Muscle Tone 5 min: Active Motion Color 5 min: Body Maria Antonia, Extremities Blue Resuscitation Effort 5 min: Tactile Stimulation SCORE 5 MIN: 9 INFORMATION BABY A Gestational Age at Delivery: 39.5 Gestational Status: Full Term- 39- 40.6 Weeks Infant Outcome : Liveborn Condition : Stable Infant Sex: Female IDENTIFICATION BABY A Infant Verification Date/Time: 10/20/2016 19:32 ID Band Number: [id number] Mother's Name Verified: Yes RN Verifying : AJr Heath RN Additional Verifying Personnel: K. Fore RN WEIGHT/LENGTH BABY A Birthweight (gm): 2818 Weight (lb): 6 Weight (oz): 3 Length (in): 19.00 Length (cm): 48.26 CORD INFORMATION BABY A No. Cord Vessels: 3 Nuchal Cord : Around Neck x1, Loose Cord Blood Taken: Yes-For Storage (Mom's Blood type +) Suction: Mouth; Nose ASSESSMENT BABY A Complications: Oligohydramnios Physical Findings at Delivery: Within Normal Limits Respirations: Appears Normal Skin to Skin: Yes Mica Miner/ALS Called : No Care By: Arlette Mendoza, RN Transferred To: Remains with Mother BABY B INFORMATION : N/A SIGNATURES Signature: with User ID: [email or web address]
--- NOTE | 2016-11-01 06:01 | L&D General Admission ---
General Admit Datetime Report Generated by CPN: 11/01/2016 06:00 INFORMATION Patient Age: 31 (10/04/2016 11:18:QS system process) EDC: 10/22/2016 00:00 (10/04/2016 12:19:SUNNY Higgins) : 2 (10/04/2016 12:19:SUNNY Higgins) Para: 1 (10/17/2016 12:07:Lucy Yi RN) Term: 1 (10/04/2016 12:19:SUNNY Higgins) : 0 (10/04/2016 12:19:SUNNY Higgins) Spontaneous Abortions: 0 (10/04/2016 12:19:SUNNY Higgins) Induced Abortions: 0 (10/04/2016 12:19:SUNNY Higgins) Livin (10/04/2016 12:19:SUNNY Higgins) Cesareans: 0 (10/04/2016 12:19:SUNNY Riggins) VBACs: 0 (10/04/2016 12:19:SUNNY Riggins) Ectopic: 0 (10/04/2016 12:19:SUNNY Riggins) Multiple Births: 0 (10/04/2016 12:19:SUNNY Riggins) Baby, Number in Womb: 1 (10/17/2016 12:07:Lucy Yi RN) CARE Primary Art Department Head[facility] (10/04/2016 12:19:SUNNY Riggins) Month of 1st Visit: February (10/04/2016 12:19:SUNNY Riggins) Adequate Care: Yes (10/04/2016 12:19:SUNNY Riggins) Prepregnancy Weight (lb): 237 (10/04/2016 12:19:SUNNY Riggins) Prepregnancy Weight (kg): 107.7 (10/04/2016 12:19:QS system process) Height (in): 66 (10/22/2016 12:12:QS system process) ALLERGIES Medication Allergy: Yes (10/04/2016 12:19:SUNNY Higgins) Medication Allergies: tramadol (10/20/2016) (10/20/2016 05:36:QS system process) Latex Allergy: No Latex Allergies (10/04/2016 12:19:SUNNY Riggins) Food Allergies: none (10/04/2016 12:19:Starla Arreola RN) Environmental Allergies: none (10/04/2016 12:19:Starla Arreola RN) COMMUNICATION Primary Language: Cambodian (10/04/2016 12:19:SUNNY Riggins) Medical Tx Preferred Language: Cambodian (10/04/2016 12:19:SUNNY Riggins) Communication Barrier(s): None (10/04/2016 12:19:SUNNY Riggins) DEMOGRAPHICS Address: [address] [place] [id number] (10/04/2016 11:18:QS system process) Zipcode: [address] (10/04/2016 11:18:QS system process) Home (10/04/2016 11:18:QS system process) SSN: [id number] (10/04/2016 11:18:QS system process) Next of Kin Name: ESTELLA PALMA (10/04/2016 11:18:QS system process) Next of Kin (10/04/2016 11:18:QS system process) Next of Kin Relationship: OR (10/04/2016 11:18:QS system process) Date of : 1985 (10/04/2016 11:18:QS system process) Marital Status: (10/04/2016 11:18:QS system process) Sex: Female (10/04/2016 11:18:QS system process) Occupation: Homemaker (10/04/2016 12:19:SUNNY Riggins) Race: (10/04/2016 11:18:QS system process) Ethnicity: Non- or (10/04/2016 11:18:QS system process) Holiness: None (10/04/2016 11:18:QS system process) Education: 12 (10/04/2016 12:19:SUNNY Riggins) FOB Involved: Yes (10/04/2016 12:19:SUNNY Riggins) Father of Baby Name: Roel Bolaños (10/04/2016 12:19:SUNNY Riggins) DRUG AND ALCOHOL USE Alcohol: No (10/04/2016 12:19:SUNNY Riggins) Cigarettes: Current Everyday Smoker. [id number] (10/04/2016 12:19:SUNNY Riggins) Average Cigarettes Smoked: > 10 per day (10/04/2016 12:19:SUNNY Riggins) Advised to Stop Smoking: Yes (10/04/2016 12:19:Hali Camp, RN) Marijuana: No (10/04/2016 12:19:Hali Camp, [facility]) Cocaine: No (10/04/2016 12:19:Hali Camp, [facility]) Other Illicit Drugs: No (10/04/2016 12:19:Hali Camp, [facility]) VACCINE HISTORY Influenza Vaccine: Yes (10/04/2016 12:19:Hali Camp, [facility]) Influenza Date: 08/29/2016 (10/04/2016 12:19:Hali Camp, [facility]) Pneumococcal Vaccine: No (10/04/2016 12:19:Hali Camp, [facility]) Tetanus Vaccine: Yes (10/04/2016 12:19:Hali Camp, [facility]) Tetanus Date: 08/29/2016 (10/04/2016 12:19:Hali Camp, [facility]) Tdap Vaccine: Yes (10/04/2016 12:19:Hali Camp, [facility]) Tdap Date: 08/29/2016 (10/04/2016 12:19:Hali Camp, [facility]) Hepatitis B Vaccine: Yes (10/04/2016 12:19:Hali Camp, [facility]) Hepatitis B Vaccine Date : 2001 (10/04/2016 12:19:Hali Camp, [facility]) Vegetable Cutter: [facility] (10/04/2016 12:19:SUNNY Riggins) Feeding Preference: Breast (10/04/2016 12:19:SUNNY Riggins) Benefit of Breast Feed Discussed: Yes (10/04/2016 12:19:SUNNY Riggins) Circumcision: N/A (10/04/2016 12:19:SUNNY Riggins) Classes Attended: Unknown (10/04/2016 12:19:SUNNY Riggins) Tubal Ligation: No (10/04/2016 12:19:SUNNY Riggins) Tubal Authorization Signed: No (10/04/2016 12:19:SUNNY Riggins) Consent: N/A (10/04/2016 12:19:SUNNY Riggins) Consent Signed: No (10/04/2016 12:19:SUNNY Riggins) Pain Management Plans: Epidural (10/04/2016 12:19:SUNNY Riggins) Plans for Labor and Delivery: None (10/04/2016 12:19:SUNNY Riggins) Support Person: Estella Palma (10/04/2016 12:19:SUNNY Riggins) Support Person Relationship: Other (10/04/2016 12:19:SUNNY Riggins) Other Relationship: grandmother (10/04/2016 12:19:SUNNY Riggins) Cultural/Spritual Practice: No (10/04/2016 12:19:SUNNY Riggins) Spir/Cult Dietary Needs: No (10/04/2016 12:19:SUNNY Riggins) LIVING SITUATION/DISCHARGE PLAN Living Arrangements: House (10/04/2016 12:19:SUNNY Riggins) Adequate Access to:: Electric; Heat; Refrigeration; Plumbing/Running water; Phone; Transportation (10/04/2016 12:19:SUNNY Riggins) WIC Program: Needs referral (10/04/2016 12:19:SUNNY Riggins) Discharge Shank Skinner Person: Estella Palma (10/04/2016 12:19:SUNNY Riggins) Person to Help after Discharge: Avis Nuñez (10/04/2016 12:19:SUNNY Riggins) Currently Using Commun Resources: No (10/04/2016 12:19:SUNNY Riggins) Outside Agency/Commercial Property Manager: No (10/04/2016 12:19:SUNNY Riggins) Car Seat for Discharge: Yes (10/04/2016 12:19:SUNNY Riggins) Adoption Requested: No (10/04/2016 12:19:SUNNY Riggins) Pt Contact w/infant Post : N/A (10/04/2016 12:19:SUNNY Riggins) LABS Blood Type: O Positive (10/04/2016 12:19:Aysha Root RN) Antibody Screen: negative (10/04/2016 12:19:Starla Arreola RN) Hemoglobin: 9.8 L (10/22/2016 06:04:QS system process) Hematocrit: 29.1 L (10/22/2016 06:04:QS system process) MCV: 78 L (10/22/2016 06:04:QS system process) Group Beta Strep: Negative (10/19/2016 21:32:Starla Arreola RN) Gonorrhea: Negative (10/04/2016 12:19:Aysha Root RN) Chlamydia: Negative (10/04/2016 12:19:Aysha Root RN) RPR/VDRL: Nonreactive (10/04/2016 12:19:Starla Arreola RN) HIV Exposure Test: Negative (10/04/2016 12:19:Aysha Root RN) Hepatitis B: Negative (10/04/2016 12:19:Starla Arreola RN) Rubella: Immune (10/04/2016 12:19:Starla Arreola RN) Varicella: Susceptible (10/04/2016 12:19:Starla Arreola RN) OB/PREVIOUS HISTORY Previous Procedures: Ultrasound; NST (10/04/2016 12:19:SUNNY Riggins) Current Procedures: Ultrasound; NST (10/04/2016 12:19:SUNNY Riggins) History of Previous : No (10/04/2016 12:19:SUNNY Riggins) History of Gestational Diabetes: No (10/04/2016 12:19:SUNNY Riggins) History of PIH: No (10/04/2016 12:19:SUNNY Riggins) History of Incompetent Cervix: No (10/04/2016 12:19:Hali Max [facility]) History of Placenta Previa/Abrup: No (10/04/2016 12:19:Hali Max [facility]) History of Macrosomia: No (10/04/2016 12:19:Hali Max [facility]) History of IUGR: No (10/04/2016 12:19:Hali Max [facility]) History of Hemorrhage: No (10/04/2016 12:19:Hali Max [facility]) History of Loss/Stillborn: No (10/04/2016 12:19:Hali Max [facility]) History of : No (10/04/2016 12:19:Hali Max [facility]) History of D (Rh) Sensitization: No (10/04/2016 12:19:Hali Max [facility]) History Recurrent Loss/Stillborn: No (10/04/2016 12:19:Hali Max [facility]) History Depression/PP Depression: Yes (10/04/2016 12:19:Hali Max [facility]) History of Uterine Anomaly/PEBBLES: No (10/04/2016 12:19:Hali Max [facility]) History of Infertility: No (10/04/2016 12:19:Hali Max [facility]) History of ART Treatment: No (10/04/2016 12:19:Hali Max [facility]) History of PEBBLES: No (10/04/2016 12:19:Hali Max [facility]) Comments Obstetrical History: G-1 at 40.2 weeks (2004) possible pp depression no dx or treatment G2: Current, GDM and oligo (10/04/2016 12:19:Lexy Alvarado RN) MEDICAL HISTORY Med Hx Diabetes: No (10/04/2016 12:19:SUNNY Riggins) Diabetes Type: Gestational Diabetes (10/04/2016 12:19:SUNNY Riggins) Med Hx Hypertension: No (10/04/2016 12:19:SUNNY Riggins) Med Hx Heart Disease: No (10/04/2016 12:19:SUNNY Riggins) Med Hx Autoimmune Disorder: No (10/04/2016 12:19:SUNNY Riggins) Med Hx Kidney Disease/UTI: No (10/04/2016 12:19:SUNNY Riggins) Med Hx Neurologic/Epilepsy: No (10/04/2016 12:19:SUNNY Riggins) Med Hx Psychiatric Disorders: No (10/04/2016 12:19:SUNNY Riggins) Med Hx Hepatitis/Liver Disease: No (10/04/2016 12:19:SUNNY Riggins) Med Hx Varicosities/Phlebitis: No (10/04/2016 12:19:SUNNY Riggins) Med Hx Thyroid Dysfunction: No (10/04/2016 12:19:SUNNY Riggins) Med Hx Trauma/Violence: No (10/04/2016 12:19:SUNNY Riggins) Med Hx Blood Transfusion: No (10/04/2016 12:19:SUNNY Riggins) Med Hx Pulmonary (Asthma,TB): No (10/04/2016 12:19:SUNNY Riggins) Med Hx Breast: No (10/04/2016 12:19:SUNNY Riggins) Med Hx [employer] TECHNICAL OFFICER Surgery: No (10/04/2016 12:19:SUNNY Riggins) Med Hx Hospitalization/Surgery: Yes (10/04/2016 12:19:SUNNY Riggins) Med Hx Anesthetic Complications: No (10/04/2016 12:19:SUNNY Riggins) Med Hx Abnormal Pap Smear: Yes (10/04/2016 12:19:SUNNY Riggins) Other Medical Diseases: No (10/04/2016 12:19:SUNNY Riggins) Med Hx Significant Family Hx: No (10/04/2016 12:19:SUNNY Riggins) Details of Med/Surg Hx: G1 possible pp depression, tonsillectomy age 3 and wisdom teeth extraction 2001, chidbirth 2004. H/o abnormal pap HPV 2009 BRCA 1 positive considering mastectomy after delivery (10/04/2016 12:19:Aysha Root RN) INFECTIOUS HISTORY Inf Hx Gonorrhea: No (10/04/2016 12:19:Hali Max, [facility]) Inf Hx Chlamydia: No (10/04/2016 12:19:Hali Max, [facility]) Inf Hx Syphilis: No (10/04/2016 12:19:Hali Max, [facility]) Inf Hx HIV/AIDS: No (10/04/2016 12:19:Hali Max, [facility]) Inf Hx Human Papilloma Virus: Yes (10/04/2016 12:19:Hali Max, [facility]) Inf Hx Pt/Partner Genital Herpes: No (10/04/2016 12:19:Hali Max, [facility]) Inf Hx Tuberculosis/Exposure: No (10/04/2016 12:19:Hali Max, [facility]) Inf Hx Hepatitis B,C: No (10/04/2016 12:19:Hali Max, [facility]) Inf Hx Rash or Viral Illness: No (10/04/2016 12:19:Hali Max, [facility]) Details of Infectious Hx: h/o HPV 2008 (10/04/2016 12:19:Hali Max, [facility]) GENETIC HISTORY Gen Hx Age >=35 at RADHAMES: No (10/04/2016 12:19:Hali Camp, RNC) Gen Hx Thalassemia: No (10/04/2016 12:19:Hali Camp, RNC) Gen Hx Congenital Heart Defect: No (10/04/2016 12:19:Hali Camp, RNC) Gen Hx Neural Tube Defect: No (10/04/2016 12:19:Hali Camp, RNC) Gen Hx Down's Syndrome: No (10/04/2016 12:19:Hali Camp, RNC) Gen Hx Noah-Sachs: No (10/04/2016 12:19:Hali Camp, [facility]) Gen Hx Guillermo: No (10/04/2016 12:19:Hali Camp, RN) Gen Hx Familial Dysautonomia: No (10/04/2016 12:19:Hali Camp, RNC) Gen Hx Sickle Cell Disease/Trait: No (10/04/2016 12:19:Hali Camp, RNC) Gen Hx Hemophilia/Blood Disorder: No (10/04/2016 12:19:Hali Camp, RNC) Gen Hx Muscular Dystrophy: No (10/04/2016 12:19:Hali Camp, [facility]) Gen Hx Cystic Fibrosis: No (10/04/2016 12:19:Hali Camp, RNC) Gen Hx Huntingtons Chorea: No (10/04/2016 12:19:Hali Camp, RNC) Gen Hx Mental Retardation/Autism: No (10/04/2016 12:19:Hali Camp, RNC) Gen Hx Tested for Fragile X: No (10/04/2016 12:19:Hali Camp, RNC) Gen Hx Other Inher/Chromosomal: No (10/04/2016 12:19:Hali Camp, RNC) Gen Hx Maternal Metabolic DO: No (10/04/2016 12:19:Hali Camp, RNC) Gen Hx Pt Father or FOB Defect: No (10/04/2016 12:19:SUNNY Riggins) Gen Hx Other Genetic History: No (10/04/2016 12:19:SUNNY Riggins) Gen Hx Drugs/Meds since LMP: No (10/04/2016 12:19:SUNNY Riggins)
--- NOTE | 2016-11-01 06:01 | L&D Current Admission ---
Current Admit Datetime Report Generated by CPN: 11/01/2016 06:00 ADMISSION INFORMATION Current Admit Date/Time: 10/19/2016 17:15 (10/19/2016 19:14:Aysha Root RN) Reason for Admission: Induction of Labor (10/19/2016 19:14:Aysha Root RN) Chief Complaint: Scheduled Induction of Labor (10/19/2016 17:40:Aysha Root RN) Medications During : Vitamin (10/19/2016 19:14:Aysha Root RN) EGA per Dates: 39.4 (10/19/2016 19:14:QS system process) Method of Arrival: Ambulatory (10/19/2016 19:14:Aysha Root RN) Admitted From: Home (10/19/2016 19:14:Aysha Root RN) Reason for Induction: Oligohydramnios (10/19/2016 19:14:Aysha Root RN) Records Available: Yes (10/19/2016 19:14:Aysha Root RN) General Admission Information: Reviewed (10/19/2016 19:14:Starla Arreola RN) BELONGINGS/ADVANCED DIRECTIVES Other Belongings: see signed belongings consent (10/19/2016 19:14:Aysha Root RN) Disposition of Belongings: Kept with Patient (10/19/2016 19:14:Aysha Root RN) Advance Direct for Healthcare: No, and Wants No Information (10/19/2016 19:14:Aysha Root RN) Durable Power of Sr Risk Management Consultant: No (10/19/2016 19:14:Aysha Root RN) Living Will: No (10/19/2016 19:14:Aysha Root RN) Organ Donor: Yes (10/19/2016 19:14:Aysha Root RN) Pt Rights Information Given: Yes (10/19/2016 19:14:Aysha Root RN) Pt Understands Pt Rights: Yes (10/19/2016 19:14:Aysha Root RN) LEARNING ASSESSMENT Knowledge Level: Understands L_D Process; Understands Care Activities; Understands Diagnosis (10/19/2016 19:14:Starla Arreola RN) Barriers to Learning: None (10/19/2016 19:14:Starla Arreola RN) Learning Readiness: Motivated (10/19/2016 19:14:Starla Arreola RN) Learns Best By: 1 to 1 Instruction; Reading; Videos; Demonstration (10/19/2016 19:14:Starla Arreola RN) Learning Needs: Labor and Delivery Process; Pain Management; Symptoms to Report; Treatment Plan; Medication; Diagnosis; Nutrition; Equipment; Care; Community Resources (10/19/2016 19:14:Starla Arreola RN) DOMESTIC VIOLANCE SCREENING Dom Viol Threatened/Hurt: No (10/19/2016 19:14:Aysha Root RN) Hx of Abuse/Neglect past 2yrs: No (10/19/2016 19:14:Aysha Root RN) Feel Unsafe Going Home: No (10/19/2016 19:14:Aysha Root RN) Addt'l Observ Indicating Abuse: No (10/19/2016 19:14:Aysha Root RN) Reason Unable to Complete Screen: N/A, Screen Completed (10/19/2016 19:14:Aysha Root RN) Considered Personal Harm/Suicide: No (10/19/2016 19:14:Aysha Root RN) NUTRITIONAL/FUNCTIONAL SCREENING Problem with Appetite >5 Days: No (10/19/2016 19:14:Aysha Root RN) Chew/Swallow Difficulties: No (10/19/2016 19:14:Aysha Root RN) Inappropriate Wt Gain/Loss: No (10/19/2016 19:14:Aysha Root RN) Presence Skin Breakdown/Ulcer: No (10/19/2016 19:14:Aysha Root RN) Special Diet: No (10/19/2016 19:14:Aysha Root RN) Pt Requests Campaign Fundraiser Visit: No (10/19/2016 19:14:Aysha Root RN) Hx of Any of the Following?: N/A (10/19/2016 19:14:Aysha Root RN) New Diagnosis of: N/A (10/19/2016 19:14:Aysha Root RN) Requires Assist w/Ambulation: No (10/19/2016 19:14:Aysha Root RN) Uses Assist Device to Ambulate: No (10/19/2016 19:14:Aysha Root RN) Pt Requires Help w/ADL's: No (10/19/2016 19:14:Aysha Root RN)
== END 2016-10-22 13:40 | disposition home or self-care (01) | DRG 775 ==
LOC: LC 17:01 → LR 17:16 → 2S 10-20 23:06
PROVIDERS: ADMIT Obstetrics & Gynecology; ATTEND Obstetrics & Gynecology
PROC: 10E0XZZ Delivery of Products of Conception, External Approach (ICD-10-PCS; principal; 2016-10-19)
PROC: 3E0P7GC Introduction of Other Therapeutic Substance into Female Reproductive, Via Natural or Artificial Opening (ICD-10-PCS; 2016-10-19)
PROC: 4A1HXCZ Monitoring of Products of Conception, Cardiac Rate, External Approach (ICD-10-PCS; 2016-10-19)
DX: O24.410 Gestational diabetes mellitus in pregnancy, diet controlled (principal); O41.03X0 Oligohydramnios, third trimester, not applicable or unspecified; O36.5930 Maternal care for other known or suspected poor fetal growth, third trimester, not applicable or unspecified; O99.344 Other mental disorders complicating childbirth; F32.9 Major depressive disorder, single episode, unspecified; O99.334 Smoking (tobacco) complicating childbirth; F17.210 Nicotine dependence, cigarettes, uncomplicated; O69.81X0 Labor and delivery complicated by cord around neck, without compression, not applicable or unspecified; Z88.6 Allergy status to analgesic agent; Z3A.39 39 weeks gestation of pregnancy; Z37.0 Single live birth
CPT/HCPCS: 36415; 80307; 81005; 82962; 85025; 85027; 86592; 86850; 86900; 86901; 88307; J2370; J2590; J3010; J3490